=== PATIENT | female | born 1955 | race Caucasian/White ===

== ENCOUNTER 2020-11-10 07:33 | Outpatient (REF) | payer OTHER, SELFPAY | END 2020-11-10 07:34 | disposition home or self-care (01) | LOC: HO.LAB 07:33 | PROVIDERS: PCP Internal Medicine; Visit Provider Internal Medicine | DX: Z20.822 Contact with and (suspected) exposure to COVID-19 (principal) | CPT/HCPCS: C9803; U0003; U0005 ==

== ENCOUNTER 2025-02-05 13:07 | Emergency (ER) | payer MEDICARE, SELFPAY ==
--- NOTE | ~2025-02-05 | XR_ITS ---
EXAMINATION: XR KNEE, RIGHT CLINICAL INFORMATION: fall, large laceration COMPARISON: None available. TECHNIQUE: Four views of the right knee. FINDINGS: Hardware from total knee arthroplasty is evident. There is anatomic positioning without sign of loosening. Small joint effusion is present. High density fragments are visible in the soft tissues anterior to lower half of patella and projecting over proximal patellar tendon on the lateral view. On the frontal view, there are hyperdensities in the soft tissues medial to the joint line and medial femoral condyle. Soft tissue irregularity is visible anterior to superior and middle third patella on the lateral x-ray. Moderate vascular calcifications are visible in the thigh and lower leg. XR/XR knee RT 4V IMPRESSION: Soft tissue laceration with radiodense foreign bodies in the region of the mid and lower patella and proximal patellar tendon. Total knee arthroplasty. Joint effusion Electronically signed by: Isaac Batista MD 02/05/2025 01:35 PM EST
--- NOTE | ~2025-02-05 | CT_ITS ---
CLINICAL HISTORY: trauma --- Additional Notes or Special Instructions: evaluate for joint air in joint CT right knee jointwithout contrast Comparison: CR/SR - XR KNEE 4 OR MORE VIEWS RIGHT - 02/05/25 13:31 EST Findings: There is a well-seated knee joint arthroplasty. There is significant metallic artifact limiting surrounding soft tissue and joint evaluation. There are no acute fractures or dislocation. There is evidence of skin irregularity/laceration as well as several bubbles of soft tissue gas and several small radiopaque foreign bodies visualized in the subcutaneous tissues anterior to the patella, axial images 75-85, series 3. There is a trace suprapatellar joint effusion. No obvious gas within the joint space. There are no soft tissue masses or collections. IMPRESSION: Skin irregularity/laceration, associated with bubbles of soft tissue gas and several small radiopaque foreign bodies in the subcutaneous soft tissue anterior to the patella. Correlate with history of recent injury. There is trace amount of fluid in the joint. No obvious or significant amount of gas within the joint. However, this is difficult to completely exclude due to the significant metallic artifact arising from the joint arthroplasty. No acute fracture or dislocation. This document has been electronically signed by: Riki Davis MD on 02/05/2025 20:09:07
--- NOTE | 2025-02-05 13:09 | ED.GENADULT ---
HPI - General Adult General Chief complaint: Fall Stated complaint: fall, knee inj Time Seen by Provider: 02/05/25 17:59 Source: patient, RN notes reviewed and old records reviewed Mode of arrival: ambulatory Limitations: no limitations History of Present Illness ED Provider: Jama HPI narrative: A 69 year-old female with a past medical history of a right knee replacement presents to the ED after a fall in her garage where she landed on concrete and hit the front of her right knee which now has a large laceration. She denies any head strike or LOC and states that she is not on blood thinners. She says that the pain is a 9/10 but otherwise denies any numbness/tingling to the affected area or right lower extremity. The patient reports that her right knee arthroplasty was performed in [place] about 10 years ago. She reports that her last tetanus shot was within the last 3 years Related Data Previous Rx's ?Medication ?Instructions ?Recorded cephalexin 500 mg capsule 500 mg PO Q8H #15 caps 02/05/25 morphine 15 mg immediate release 15 mg PO Q8H PRN severe pain 02/05/25 tablet (scale score 7-10) #12 tabs Allergies Allergy/AdvReac Type Severity Reaction Status Date / Time No Known Allergies Allergy Verified 02/05/25 13:11 Review of Systems Constitutional: Constitutional: Denies body ache(s), Denies chills, Denies fever(s) and Denies headache(s) Eyes: Eyes: Denies blurry vision ENT: Denies vertigo and Denies headache(s) Cardiovascular: Cardiovascular: Denies chest pain Musculoskeletal: Musculoskeletal: Reports arthralgias, Reports joint swelling, Reports limited range of motion, Denies numbness and Denies tingling Integumentary/Breasts: Skin/Breast: Denies rash and Reports wounds Neurologic: Denies vertigo, Denies headache(s), Denies numbness and Denies tingling Psychiatric: Psychiatric: Denies anxiety PMFSH Social History Social History Advance Directives: No Advance Directives Information Provided: No Do you have a plan to hurt others: No Plan Physical Exam ED Vital Signs: Vital Signs - 24 hr 02/05/25 19:35 02/05/25 22:22 02/05/25 22:39 Temperature 98.1 F 97.8 F 97.8 F Pulse Rate 64 65 65 Respiratory Rate 18 18 18 Blood Pressure 143/63 H 132/55 L 132/55 L Pulse Oximetry 95 95 95 Oxygen Delivery Method Room Air Room Air Room Air BMI result Body Mass Index 32.9 Const General: healthy appearing, comfortable, no acute distress, alert and awake Nutritional Appearance: well nourished Orientation/consciousness: patient oriented x3 HENMT Head: Yes normocephalic and Yes atraumatic Eyes Eyelids: Yes eyelids normal Conjunctivae: conjunctivae normal Sclerae: sclerae normal Corneas: corneas normal Pupils: Equal, round and reactive pupils present EOM: EOMs intact bilaterally Neck Neck: Yes full ROM Resp Effort & Inspection: normal respiratory effort, able to speak in complete sentences and not labored Cardio Rate: regular rate Rhythm: regular rhythm Skin Other: Large complex laceration to the right anterior knee. Minimal bleeding. General skin exam: elasticity normal Neuro General: patient oriented x3 Cranial nerves: Yes Equal, round and reactive pupils present and Yes Bilaterally intact EOM present Cognition (Neuro): normal cognition Extrem Other: The patient has full active range of motion with flexion-extension of the right knee Right lower extremity: full ROM and knee (Anterior laceration ) Details: tenderness, swelling and laceration Course Course Course Narrative: This is a rapid medical exam performed by Jen Caceres NP: Additional HPI, ROS, PE not included below will be deferred to primary provider. Patient is a 69y/o F presenting with right knee injury/laceration. States that she tripped between her driveway and garage and fell onto her right knee. Believes tetanus is up-to-date. Large laceration to right anterior knee, bandaged in triage, bleeding controlled. Plan: X-ray Reevaluation(s) Reevaluation #1: attending note: I saw this patient with the physician land surveyor assistant and I agreed with the steps taken to address this patient's wound. My suspicion for a violation of the joint is low. Dr. Juárez. Medications Administered Discontinued Medications Generic Name Dose Route Start Last Admin Trade Name Freq PRN Reason Stop Dose Admin Cephalexin HCl 500 mg 02/05/25 21:56 02/05/25 22:24 Cephalexin 500 Mg Capsule PO 02/05/25 21:57 500 mg ONCE ONE Administration Lidocaine/Epinephrine 10 ml 02/05/25 19:04 02/05/25 20:59 Lidocaine Hcl 1%/Epi 1:100,000 10 Ml Vial INFILTRATI 02/05/25 19:05 10 ml ONCE ONE Administration Morphine Sulfate 15 mg 02/05/25 18:41 02/05/25 18:48 Morphine Sulfate Immed Release 15 Mg Tablet PO 02/05/25 18:42 15 mg ONCE ONE Administration Ondansetron HCl 4 mg 02/05/25 18:41 02/05/25 18:48 Ondansetron Odt 4 Mg Tab.Rapdis TRANSLINGU 02/05/25 18:42 4 mg ONCE ONE Administration Procedures Laceration Laceration 1: Site: lower extremity Side (If applicable): right Size (cm): 12 Description: irregular and contaminated Depth: simple, single layer Local Anesthetic: lidocaine 1% and with epi Amount of anesthesia used (mL): 10 Pre-repair: wound explored, irrigated extensively, deep structures intact and extensive debridement Skin layer closed with: nylon Size (cm): 4-0 Number of sutures: 22 Technique: simple, interrupted Medical Decision Making Medical Decision Making MDM Narrative: 69-year-old female presents for evaluation of right knee pain. She has a fairly complex laceration. Given the prosthesis I discussed with orthopedics and my attending. We opted to obtain a CT scan of the joint to evaluate for air within the joint capsule. This did not appear to show any obvious joint violation. I then cleaned the area, irrigated copiously and probed with a sterile cotton swab. I did not see any disruption into the joint. Everything seems superficial and related do a cutaneous and subcutaneous laceration. Differential Diagnosis Differential Diagnoses: The differential diagnosis associated with the presentation includes Laceration Hematoma Joint effusion Foreign body Contusion Admission/Observation Consideration of admission/observation: Escalation of care including admission/observation considered Consult Healthcare Provider Management of the patient was discussed with: [facility] (Orthopedics, Miguelito Palumbo recommends further evaluation to rule out joint involvement) Radiology Impression Discussion of test interpretation with radiology: I have reviewed the radiologist's reading. Radiologist Impression: FINDINGS: Hardware from total knee arthroplasty is evident. There is anatomic positioning without sign of loosening. Small joint effusion is present. High density fragments are visible in the soft tissues anterior to lower half of patella and projecting over proximal patellar tendon on the lateral view. On the frontal view, there are hyperdensities in the soft tissues medial to the joint line and medial femoral condyle. Soft tissue irregularity is visible anterior to superior and middle third patella on the lateral x-ray. Moderate vascular calcifications are visible in the thigh and lower leg. XR/XR knee RT 4V IMPRESSION: Soft tissue laceration with radiodense foreign bodies in the region of the mid and lower patella and proximal patellar tendon. Total knee arthroplasty. Joint effusion Electronically signed by: Isaac Batista MD 02/05/2025 01:35 PM [facility] Findings: There is a well-seated knee joint arthroplasty. There is significant metallic artifact limiting surrounding soft tissue and joint evaluation. There are no acute fractures or dislocation. There is evidence of skin irregularity/laceration as well as several bubbles of soft tissue gas and several small radiopaque foreign bodies visualized in the subcutaneous tissues anterior to the patella, axial images 75-85, series 3. There is a trace suprapatellar joint effusion. No obvious gas within the joint space. There are no soft tissue masses or collections. IMPRESSION: Skin irregularity/laceration, associated with bubbles of soft tissue gas and several small radiopaque foreign bodies in the subcutaneous soft tissue anterior to the patella. Correlate with history of recent injury. There is trace amount of fluid in the joint. No obvious or significant amount of gas within the joint. However, this is difficult to completely exclude due to the significant metallic artifact arising from the joint arthroplasty. No acute fracture or dislocation. This document has been electronically signed by: Riki Davis MD on 02/05/2025 20:09:07 Discharge Plan Discharge Clinical Impression: Laceration of knee, right, complicated Patient Disposition: Home, Self-Care Instructions: Laceration (ED) Additional Instructions: You had a complex laceration over your prosthesis. You had an x-ray, CT scan and direct visualization that did not show any obvious involvement of the joint itself. The wound was cleaned as best as possible. In his possible to her still small fragments of gravel in the wound. Therefore recommend taking antibiotics 3 times a day for the next 5 days to prevent infection. Return for new or worsening symptoms, especially if the area becomes red, more swollen or painful or if you develop any fevers I recommend that you follow up with Orthopedics at the number provided. Your sutures can be removed in 10-14 days Prescriptions: New cephalexin 500 mg capsule 500 mg PO Q8H Qty: 15 0RF morphine 15 mg tablet 15 mg PO Q8H PRN (Reason: severe pain (scale score 7-10)) Qty: 12 0RF Rx Instructions: Partial Fill upon patient request. Referrals: [facility] [place] [facility] [Provider Group] Referral Note: complex laceration over prosthesis, right knee Interventions: ED Discharge Assessment Last Done: 02/05/25 22:39 Discharge Date/Time: 02/05/25 22:43 Print Language: Chinese
[2025-02-05 13:10] VITALS: BP 181/83; PULSE 74; RESP 20; TEMP 36.3; O2SAT 100; BMI 32.9
[2025-02-05] MEDS: Morphine Sulfate Immed Release 15 MG TABLET PO (18:48)
--- OUTSIDE RECORDS SUMMARY | 2025-02-05 19:00 | XMS_ITS | Clinical Summary ---
Author Organization [facility] Address [address] [place], [place] [id number] Phone Care Team Providers Care Machine Wood Sander Name Role Phone Ricki Lopez Primary Care Provider Allergies No known active allergies Medications FLUOXETINE HCL (FLUOXETINE ORAL) Active Medication-Free Text Ibuprofen Active TURMERIC ROOT EXTRACT ORAL Active FOLIC ACID/MULTIVIT,I LUPE,HOOP RIVETING MACHINE OPERATOR HELPER (ONE DAILY FOR WOMEN ORAL) Active MELOXICAM ORAL Activ e lidocaine (LIDODERM) 5 % Place 1 patch onto the skin daily. Remove & Discard patch within 12 hours or as directed by MD 30 patch 2 Active diclofenac sodium (VOLTAREN) 1 % Gel Apply 4 g topically 4 (four) times a day for 7 days. 112 g 2 Active Active Problems Problem Noted Date Diagnosed Date Osteoarthritis of knee 04/06/2013 Overview (05/18/2014): Osteoarthritis of knee; Right Uncoded S/P Arthroplasty of knee 04/06/2013 Overview (05/18/2014): S/P Arthroplasty of knee; Left Immunizations Immunization Administration Dates Next Due COVID-19 (Pre-01/17) Pfizer Vaccine, mRNA, PF ,06/28/2020 INFLUENZA, SPLIT VIRUS, TRIVALENT W/ PRESERVATIV E IM 01/01/2016,01/21/2015 Influenza Quadrivalent MDCK Preservative Free IM 12/17/2019,02/16/2019 Influenza Quadrivalent Preservative Free IM 12/26 Pneumococcal polysaccharide PPSV23 05/16/2013 Tdap 05/16/2013 Zoster recombinant 11/05/2019,03/01/2019 Social History Tobacco Use Types Packs/Day Years Used Date Smoking Tobacco: Every Day Comments:Smoking History Pac ks/day: <=0.5 Education Answer Date Recorded Are you interested in more education? Not on olga e 07/22/2022 Are you concerned about learning? Not on file 07/22/2022 No 07/22/2022 No 07/22/2022 Digital Access Answer Date Recorded No 08/23/2022 No 08/23/2022 No 08/23/2022 Reliable internet access at home? Not on file 08/23/2022 Device with a working camera? Not on file Comments Unknown Sex and Gender Information Value Date Recorded Sex Assigned at Not on file Legal Sex Female 7:52 PM EST Gender Identity Not on file Sexual Orientation Not on file Last Filed Vital Signs Vital Sign Reading Time Taken Comments Blood Pressure 159/80 01/23/2016 11:42 AM EDT Pulse 85 01/23/2016 11:42 AM EDT Temperature - - Respiratory Rate - - Oxygen Saturation - - Inhaled Oxygen Concentration - - Weight 90.7 kg (200 lb) 01/23/2016 11:42 AM EDT Height 166.4 cm (5' 5.5 ) 01/23/2016 11:42 AM ED T Body Mass Index 32.78 01/23/2016 11:42 AM EDT Plan of Treatment Health Maintenance Due Date Last Done Comments DEPRESSION SCREENING 1969 SMOKING Hx and SMOKELESS TOBACCO SCREENING 1970 HEPATITIS C SCREENING 09/27/1975 COLOGUARD 2002 COLONOSCOPY 2002 COLORECTAL CANCER SCREENING 2002 FIT TEST 2002 FOBT 2002 SIGMOIDOSCOPY 2002 VIRTUAL COLONOSCOPY 2002 PNEUMOCOCCAL VACCINES (50+ years) (2 of 2 - PCV) 05/16/2014 05/16/2013 Adult Td,Tdap Booster 05/16/2023 05/16/2013 INFLUENZA VACCINE (#1) 2024 , 01/13/2023, 02/24/2021, Additional history exists COVID-19 VACCINE ( - 2024- season) 2024 09/30/2021, 07/19/2020, 06/28/2020 MAMMOGRAM 01/12/2026 01/13/2024, 06/14/2020 LIPID PANEL 01/03/2029 01/04/2024, 04/21/2020 RSV VACCINE (1 - 1-dose 75+ series) 2032 ZOSTER VACCINES Completed 11/05/2019, 03/01/2019 OSTEOPOROSIS SCREENING INITIAL (ONE-TIME) Completed 05/09/2024 HEPATITIS A VACCINES Aged Out No long er eligible based on patient's age to complete this topic HIB VACCINES Aged Out No longer eligi ble based on patient's age to complete this topic IPV VACCINES Aged Out No longer eligi ble based on patient's age to complete this topic MENINGOCOCCAL VACCINES (ACWY) Aged Out No longer eligible based on patient's age to complete this topic MENINGOCOCCAL VACCINES (B) Aged Out N o longer eligible based on patient's age to complete this topic Medical Devices Not on file Insurance [employer] PPO BLUE REPLACEMENT [employer] MED[employer] PPO BLUE REPLACEMENT [address] [place] [address] MEDICARE PPO BLUE REPLACEMENT [address] [place] [address] MEDICARE PPO BLUE REPLACEMENT [employer] [place] [place] MEDICARE PPO BLUE REPLACEMENT Care Teams Machine Wood Sander Relationship Specialty Start Date End Date Ricki Lopez PA [address] [place] [id number] [email or web address] PCP - General Physician Contractor General Building 06/22/24 Additional Source Comments The information contained in this document represents components of the legal health record. It is not the complete legal health record.[facility]
--- OUTSIDE RECORDS SUMMARY | 2025-02-05 19:00 | XMS_ITS | Clinical Summary ---
Author Organization [facility] Address [address] [place] [address] Care Team Providers Care Can Sealer Name Role Phone Rimma John MD Primary Care Provider Allergies No known active allergies Medications Medication Sig Dispensed Refills Start Date End Date Status budesonide (ENTOCORT EC) 3 MG 24 hr capsule Take 2 capsules (6 mg total) by mouth daily. 0 Active FLUoxetine (PROzac) 40 MG capsule Take 1 capsule (40 mg total) by mouth daily. 0 Active omeprazole (PriLOSEC) 20 MG capsule Take 1 capsule (20 mg total) by mouth daily. 0 Active hydroCHLOROthiazide (MICROZIDE) 12.5 MG capsule Take 1 capsule (12.5 mg total) by mouth daily. 0 Active Diclofenac Sodium (DICLO GEL EX) Apply topically. 0 Acti ve acetaminophen (TYLENOL EXTRA STRENGTH) 500 MG tablet Take 1 tablet (500 mg total) by mouth every 6 (six) hours as needed. 0 Active [place]-3 Fatty Acids (Fish Oil) 1000 MG CAPS Take by mouth. 0 Active Multiple Vitamin (MULTIVITAMIN ADULT PO) Take by mouth. 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 Family History Medical History Relation Name Comments Cancer Mother Relation Name Status Comments Mother Social History Tobacco Use Types Packs/Day Years Used Date Smoking Tobacco: Former Cigarettes 1 35 Smokeless Tobacco: Never Alcohol Use Standard Drinks/Week Comments Not Currently 0 (1 standard drink = 0.6 oz pur e alcohol) NO ALCOHOL 9 YRS Sex and Gender Information Value Date Recorded Sex Assigned at Not on file Gender Identity Not on file Sexual Orientation Not on file Job Start Date Occupation Industry Not on file Not on file Not on file Last Filed Vital Signs Vital Sign Reading Time Taken Comments Blood Pressure 164/76 07/06/2022 11:00 AM EDT Pulse 73 07/06/2022 11:00 AM EDT Temperature 37.1 C (98.8 F) 07/06/2022 11:00 AM EDT Respiratory Rate - - Oxygen Saturation 100% 07/06/2022 11:00 AM EDT Inhaled Oxygen Concentration - - Weight 94.6 kg (208 lb 9.6 oz) 07/06/2022 11:00 AM EDT Height 165.1 cm (5' 5 ) 07/06/2022 11:00 AM EDT Body Mass Index 34.71 07/06/2022 11:00 AM EDT Plan of Treatment Health Maintenance Due Date Last Done Comments Hepatitis C Screening 1957 Depression Screening 1969 Preventative Health Evaluation 09/27/1975 Colon Cancer Screening (Colonoscopy) 2002 Breast Cancer Screening (Mammogram) 09/27/2007 Fall Risk Assessment 2022 Osteoporosis Screening (DEXA Scan) 2022 Pneumococcal Vaccine (2 of 2 - PCV) 2022 05/16/2013 DTap / Tdap / Td (2 - Td or Tdap) 05/16/2023 05/16/2013 COVID-19 Vaccine (3 - season) 2024 07/19/2020, 06/28/2020 Influenza Vaccine (#1) 2024 , 12/17/2019, 02/16/2019, Additional history exists RSV Adult > 60+ Yrs or (1 - 1-dose 75+ series) 2032 Shingrix-Zoster Vaccine Completed 11/05/2019, 03/01 Hepatitis B Vaccines Aged Out No long er eligible based on patient's age to complete this topic RSV Ped < 20 months Aged Out No longe r eligible based on patient's age to complete this topic Insurance Payer Benefit Plan / Group Subscriber ID Effective Dates Phone Address [facility] [id number] 2016-Present [address] [facility] [address] [place] [address] HMO Care Teams Can Sealer Relationship Specialty Start Date End Date Rimma John MD [address] [place] [address] PCP - General Internal Medicine 03/01/22
--- OUTSIDE RECORDS SUMMARY | 2025-02-05 19:00 | XMS_ITS | Clinical Summary ---
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 Active acetaminophen (TYLENOL) 500 mg tablet Take 500 mg by mouth every 6 hours as needed. Active MULTIVITAMIN ORAL 1tab daily Active omega-3 acid ethyl esters (LOVAZA) 1 gram capsule Take 1 Capsule by mouth daily. Active omeprazole (PriLOSEC) [address] capsule TAKE ONE CAPSULE BY MOUTH EVERY MORNING (BEFORE BREAKFAST). 30 capsule 6 5 Active ferrous sulfate 325 mg (65 mg elemental iron) tablet TAKE ONE TABLET BY MOUTH EVERY DAY 90 tablet 1 5 Active omega-3 fatty acids-fish oil 300-500 mg capsule Take by mouth. Activ e ascorbic acid/collagen hydr (COLLAGEN SKIN RENEWAL ORAL) Take by mouth. Activ e cholecalciferol (Vitamin D3) 25 mcg (1,000 unit) tablet Take 1 tablet (1,000 Units total) by mouth 1 (one) time each day. Active hydroCHLOROthia zide 12.5 mg tablet Take 1 tablet (12.5 mg total) by mouth 1 (one) time each day. 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 Nonrheumatic aortic valve stenosis 06/29/2021 Overview (03/29/2024): Repeat echo in 2 to 3 years. Renal artery stenosis (CMS/HCC V24) 06/25/2021 Ascending aorta dilatation (CMS/HCC V24) 022 Overview (03/29/2024): 4 cm. Seen with cardiology. Repeat echo in 2 to 3 years. LVH (left ventricular hypertrophy) 04/15/2021 Overview (03/29/2024): moderate Mild mitral regurgitation 11/01/2020 Hyperlipidemia 01/28/2020 Overview (03/29/2024): ASCVD score 5.7% Collagenous colitis 01/01/2020 Overview (03/29/2024): 01/01/2020: Colonoscopy and biopsies. HTN (hypertension), benign 11/16/2019 Overview (03/29/2024): Inconclusive RA duplex. Cardiology consult pending. Chronic low back pain without sciatica 9 Chronic pain of right knee 02/16/2019 Elevated blood pressure reading 02/16/2019 Status post total right knee replacement 019 Varicose veins with pain 08/28/2018 Gallstones 01/21/2015 Splenic cyst 01/21/2015 Overview (03/29/2024): Follow up with ultrasound in 12/2015 or symptomatic Cirrhosis ([facility]/HCC V24, [facility]/HCC V28) 09/18/2009 ETOH abuse 09/16/2009 Overview (03/29/2024): Quit etoh in 2007. Then restarted and last quit in 2012. 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 Mahan in [facility] Encounters Date Type Department Care Team Description 02/04/2025 Telephone Gynecologic Oncology - [address] [phone] [place], [place] 01/29/2025 Telephone Gynecologic Oncology - [address] [phone] [place], [place] 01/15/2025 6:55 AM EDT - 01/15/2025 11:59 PM EDT Hospital Encounter [facility] CT Scan [address] [place] [phone] Bilateral leg edema Discharge Disposition: Home or Self Care 12/07/2024 10:45 AM EDT Office Visit [facility] Hematology Oncology [address] [place] [phone] Asha Back MD Spontaneous ecchymoses (Primary Dx); Iron deficiency anemia due to sideropenic dysphagia; Bilateral leg edema; Alcoholic cirrhosis of liver without ascites (CMS/HCC V24, CMS/HCC V28) from Last 3 Months Immunizations Immunization Administration Dates Next Due Influenza Quadravalent, MDCK , 0.5ml, preservative free (Flucelvax) 6mo and older 02/24/2021,12/17/2019,02/16/2019 Influenza trivalent, 0.5mL ( Fluad) 65yo and older 01/04/2024,01/13/2023 Influenza trivalent, 0.5mL, preservative free (Fluarix; FluLaval; Fluzone) ages 6mo and older (Afluria) 3 years and older 01/07/2018,01/01/2016,01/21/2015 Influenza, Unspecified 01/07/2018 Pfizer SARS-CoV-2 COVID-19, mRNA, LNP-S, preservative free 07/19/2020,06/28/2020 Pneumococcal polysaccharide 23 valent (Pneumovax 23) 2yo and older 05/16/2013 Tdap Tetanus diptheria acell ular pertussis (Boostrix; Adacel) 7yo and older 05/16/2013 Zoster recombinant (Shingrix ) 19yo and older 11/05/2019,03/01/2019 Surgical History Surgery Date Site/Laterality Comments TOTAL KNEE ARTHROPLASTY Left PROCEDURE:REPLACEMENT TOTAL KNEE TOTAL KNEE ARTHROPLASTY 2008 Left PROCEDURE: HISTORICAL TOTAL KNEE REPLACE; COMMENT: left COLONOSCOPY 07/31/2018 PROCEDURE: HISTORICAL COLONOSCOPY; COMMENT: negative average risk screening exam. TOTAL KNEE ARTHROPLASTY 2018 Right PROCEDURE: HISTORICAL TOTAL KNEE REPLACE; COMMENT: right UPPER GASTROINTESTINAL ENDOSCOPY 12/27/2019 PROCEDURE: LA UPPER GI ENDOSCOPY PERFORMED; COMMENT: Small gastric ulcers, duodenal erosions, biopsies obtained: No evidence of celiac disease, no evidence of Helicobacter pylori infection. COLONOSCOPY 12/27/2019 PROCEDURE: HISTORICAL COLONOSCOPY; COMMENT: Visually normal, random biopsies obtained to assess chronic diarrhea: Biopsies = collagenous colitis. BREAST SURGERY Bilateral PROCEDURE: LA UNLISTED PROCEDURE BREAST; COMMENT: inverted nipple correction OTHER SURGICAL HISTORY 07/03/2021 PROCEDURE: OUTSIDE ENDOSCOPY; COMMENT: Dr. Fan [facility] Medical History Medical History Date Comments Hypertension DX:Hypertension Anxiety state, unspecified 02/10/2006 DX:An xiety state, unspecified ETOH abuse DX:ETOH abuse; C OMMENT: and narcotic abuse in past Hepatomegaly DX:Hepatomegaly Vitamin D deficiency DX:Vitamin D deficiency Collagenous colitis 01/01/2020 DX:Collageno us colitis; COMMENT: 01/01/2020: Colonoscopy and biopsies. Family History Medical History Relation Name Comments No Known Problems Father alive at 9 7 Cancer Mother Lung cancer Mother maybe mets or p rimary, unk, at 84 Lung cancer Paternal Grandfather No Known Problems Sister 1 No Known Problems Sister 2 Breast cancer Neg Hx Colon cancer Neg Hx Ovarian cancer Neg Hx Pancreatic cancer Neg Hx Prostate cancer Neg Hx Uterine cancer Neg Hx Relation Name Status Comments Father Alive A+W Maternal Grandfather Maternal Grandmother Mother Paternal Grandfather Paternal Grandmother Sister 1 Alive Sister 2 Alive Social History Tobacco Use Types Packs/Day Years Used Date Smoking Tobacco: Former Cigarettes 0.5 40.8 0 03/28/1977 - 01/25/2018 Passive Smoke Exposure: Never Smokeless Tobacco: Never Tobacco Cessation:Counseling Given: Not Answered Alcohol Use Standard Drinks/Week Comments No 0 (1 standard drink = 0.6 oz pur e alcohol) Quit 12 years Comments No Sex and Gender Information Value Date Recorded Sex Assigned at Female 06/13/2024 3:16 PM EDT Legal Sex Female 4:26 AM EST Gender Identity Female 06/13/2024 3:16 PM EDT Sexual Orientation Not on file Obstetrics History Last Filed Vital Signs Vital Sign Reading Time Taken Comments Blood Pressure 149/61 12/07/2024 10:49 AM EDT Pulse 73 12/07/2024 10:49 AM EDT Temperature 37 C (98.6 F) 12/07/2024 10:49 AM EDT Respiratory Rate 14 10/02/2024 7:56 AM EDT Oxygen Saturation 100% 12/07/2024 10:49 AM EDT Inhaled Oxygen Concentration - - Weight 88.5 kg (195 lb) 12/07/2024 10:49 AM EDT Height 165.1 cm (5' 5 ) 12/07/2024 10:49 AM EDT Body Mass Index 32.45 12/07/2024 10:49 AM EDT Plan of Treatment Upcoming Encounters Date Type Department Care Team (Late st Contact Info) Description 02/06/2025 8:40 AM EST Appointment Radiology Department [address] [phone] 06/07/2025 9:45 AM EDT Office Visit [facility] Hematology Oncology [address] [place] [phone] Asha Ramos MD [address] [place] [phone] Health Maintenance Due Date Last Done Comments Hepatitis A Vaccines (1 of 2 - Risk 2-dose series) 1974 Medicare Annual Wellness Visit 03/06/2022 Social Influencers of Health Screening 03/06/2022 Falls Risk Assessment 2022 DTaP,Tdap,and Td Vaccines (2 - Td or Tdap) 05/16/2023 05/16/2013 Depression Screening 03/28/2024 COVID-19 Vaccine ( season) 2024 08/26/2024, 09/30/2021, 07/19/2020, Additional history exists Influenza Vaccine (#1) 2024 , 01/13/2023, 02/24/2021, Additional history exists Lung Cancer Screening (Low Dose CT) 06/15/2025 06/15/2024, 06/16/2023, 05/19/2022 Hypertension/CHF/CAD Annual BMP Blood Test 08/29/2025 08/29/2024, 08/13/2024, 08/01/2024, Additional history exists Breast Cancer Screening 01/12/2026 01/13/20 24, 01/13/2024, 06/19/2021, Additional history exists Cholesterol Screening (Lipid Panel) 01/03/2029 01/04/2024, 01/04/2024 Colorectal Cancer Screening: Colonoscopy 12/26/2029 12/27/2019 RSV Immunization Adult Patients (1 - 1-dose 75+ series) 2032 Osteoporosis Screening (Bone Density Screening) 05/09/2034 05/09/2024 Hepatitis C Screening Completed 09/16/2009 Zoster Vaccines Completed 11/05/2019, 03/01/2019 Pneumococcal Vaccine: 50+ Years Completed 08/26/2024, 05/16/2013 HIB Vaccines Aged Out No longer eligi ble based on patient's age to complete this topic HPV Vaccines Aged Out No longer eligi ble based on patient's age to complete this topic Hepatitis B Vaccines Aged Out No long er eligible based on patient's age to complete this topic IPV Vaccines Aged Out No longer eligi ble based on patient's age to complete this topic MMR Vaccines Aged Out No longer eligi ble based on patient's age to complete this topic Meningococcal ACWY Vaccine Aged Out N o longer eligible based on patient's age to complete this topic Meningococcal B Vaccine Aged Out No l onger eligible based on patient's age to complete this topic RSV Immunization Patients Under 20 months Aged Out No longer eligible based on patient's age to complete this topic Varicella Vaccines Aged Out No longer eligible based on patient's age to complete this topic Procedures Procedure Name Priority Date/Time Associated Diagnosis Comments CT ABDOMEN PELVIS W CONTRAST Routine 01/15/2025 7:54 AM EDT Bilateral leg edema BASIC METABOLIC PANEL Routine 08/29/2024 10:[address] LUNG SCREENING Routine 06/15/2024 7:5 3 AM EDT Personal history of nicotine dependence Encounter for screening for malignant neoplasm of respiratory organs BD BONE DENSITY DXA AXIAL SKELETON Routine 05/09/2024 9:35 AM EST Encounter for screening for osteoporosis SCREENING MAMMOGRAPHY BI 2-VIEW BREAST INC CAD Routine 01/13/2024 11:19 AM EDT Encounter for screening mammogram for malignant neoplasm of breast LIPID PANEL Routine 01/04/2024 COLONOSCOPY Routine 12/27/2019 HEPATITIS C SCREENING Routine 09/16/2009 from Last 3 Months or Most Recently Relevant to Health Maintenance Results * CT Abdomen Pelvis w Contrast (01/15/2025 7:54 AM EDT) Anatomical Region Laterality Modality Body Computed Tomogra phy 01/22/2025 2:44 PM EDT Impressions 01/22/2025 2:54 PM EDT Impression: 1. Cirrhotic liver. 2. 4 x 3 x 5 cm left adnexal mass, presumably ovarian in origin. Pelvic ultrasound recommended for further characterization. [place] ([id number]) -------- FINAL REPORT -------- Dictated By: Essie Villa Dictated Date: 01/22/2025 14:44 ET Assigned Physician: Essie Villa Reviewed and Electronically Signed By: Essie Villa Signed Date: 01/22/2025 14:54 ET Workstation ID: [id number] Transcribed By: Self Edit Transcribed Date: 01/22/2025 14:44 ET Narrative 01/22/2025 2:54 PM EDT History: Bilateral lower extremity swelling. Question abdominal lymphadenopathy or mass. Comparison: Lung screening CT 06/15/24 Technique: Helical volumetric imaging of the abdomen and pelvis was performed following oral contrast and during the uneventful intravenous administration of 90 cc Isovue-370. DLP: 1125.71 mGy/cm Nurego VCT Iterative reconstruction technique Findings: Mild multichamber cardiomegaly with extensive coronary artery calcification is partially imaged. A cirrhotic hepatic configuration is again demonstrated, with extensive surface nodularity and enlargement of the caudate lobe. A 3 mm circumscribed hypoattenuating lesion in the lateral segment of the left lobe is unchanged, most likely a cyst. The portal vein is patent. The gallbladder is physiologically distended and contains at least a single small calculus. No evidence of biliary obstruction is seen. Spleen is normal in size. There are two small hypoattenuating lesions in the lower pole, measuring 5 mm and 4 mm, respectively, possibly cysts. The pancreas and adrenal glands are unremarkable. The kidneys are normal in position and size, with symmetric, intact nephrograms and no evidence of hydronephrosis or mass. A 4 mm nonobstructing calculus is seen in the upper pole of the right kidney. The abdominal aorta is atherosclerotic. No aneurysm is identified. There are tortuous vascular structures in the right perirenal and left para-aortic areas, consistent with portosystemic collaterals in this setting. No ascites is identified. No lymphadenopathy is seen. The uterus is small, consistent with age. A 4.4 x 3.2 x 4.8 cm circumscribed round left adnexal mass is identified, presumably ovarian in origin. The urinary bladder is unremarkable. No evidence of bowel obstruction is seen. Enteric contrast given for the study has reached the proximal colon. The appendix is normal in caliber in the right lower quadrant. No abnormal bowel wall thickening or perienteric or pericolonic fat stranding is demonstrated. Lumbar disc degenerative changes and facet arthritis are noted. A mild compression fractures/Schmorl's node deformity is noted in the superior endplate of L4. No retropulsion is seen. Procedure Note Essie Villa MD - 01/22/2025 History: Bilateral lower extremity swelling. Question abdominallymphadenopathy or mass. Comparison: Lung screening CT 06/15/24 Technique: Helical volumetric imaging of the abdomen and pelvis wasperformed following oral contrast and during the uneventful intravenousadministration of 90 cc Isovue-370. DLP: 1125.71 mGy/cm Nurego VCT Iterative reconstruction technique Findings: Mild multichamber cardiomegaly with extensive coronary arterycalcification is partially imaged. A cirrhotic hepatic configuration is again demonstrated, with extensivesurface nodularity and enlargement of the caudate lobe. A 3 mmcircumscribed hypoattenuating lesion in the lateral segment of the leftlobe is unchanged, most likely a cyst. The portal vein is patent. Thegallbladder is physiologically distended and contains at least a singlesmall calculus. No evidence of biliary obstruction is seen. Spleen is normal in size. There are two small hypoattenuating lesions inthe lower pole, measuring 5 mm and 4 mm, respectively, possibly cysts. Thepancreas and adrenal glands are unremarkable. The kidneys are normal in position and size, with symmetric, intactnephrograms and no evidence of hydronephrosis or mass. A 4 mmnonobstructing calculus is seen in the upper pole of the right kidney. The abdominal aorta is atherosclerotic. No aneurysm is identified. Thereare tortuous vascular structures in the right perirenal and leftpara-aortic areas, consistent with portosystemic collaterals in thissetting. No ascites is identified. No lymphadenopathy is seen. The uterus is small, consistent with age. A 4.4 x 3.2 x 4.8 cmcircumscribed round left adnexal mass is identified, presumably ovarian inorigin. The urinary bladder is unremarkable. No evidence of bowel obstruction is seen. Enteric contrast given for thestudy has reached the proximal colon. The appendix is normal in caliber inthe right lower quadrant. No abnormal bowel wall thickening or perientericor pericolonic fat stranding is demonstrated. Lumbar disc degenerative changes and facet arthritis are noted. A mildcompression fractures/Schmorl's node deformity is noted in the superiorendplate of L4. No retropulsion is seen. IMPRESSION: Impression: 1. Cirrhotic liver. 2. 4 x 3 x 5 cm left adnexal mass, presumably ovarian in origin. Pelvicultrasound recommended for further characterization. Telerad [place] ([id number]) -------- FINAL REPORT -------- Dictated By: Essie Villa Dictated Date: 01/22/2025 14:44 ET Assigned Physician: Essie Villa Reviewed and Electronically Signed By: Essie Villa Signed Date: 01/22/2025 14:54 ET Workstation ID: [id number] Transcribed By: Self Edit Transcribed Date: 01/22/2025 14:44 ET Subramcharles Ramos MD IMG CT PROCEDURES F inal Result * Basic metabolic panel (08/29/2024 10:30 AM EDT) Sodium 141 133 - 145 mmol/L LAB CHEMISTRY METHOD 08/29/2024 3:34 PM [facility] Potassium 3.7 3.5 - 5.5 mmol/L LAB CHEMISTRY METHOD 08/29/2024 3:34 PM [facility] Chloride 108 96 - 110 mmol/L LAB CHEMISTRY METHOD 08/29/2024 3:34 PM [facility] CO2 28 21 - 32 mmol/L LAB CHEMISTRY METHOD 08/29/2024 3:34 PM [facility] Anion Gap 5 3 - 11 LAB CHEMISTRY METHOD 08/29/2024 3:34 PM [facility] Glucose 96 70 - 100 mg/dL LAB CHEMISTRY METHOD 08/29/2024 3:34 PM [facility] BUN 17 5 - 25 mg/dL LAB CHEMISTRY METHOD 08/29/2024 3:34 PM EDT [facility] Creatinine 0.68 0.50 - 1.10 mg/dL LAB CHEMISTRY METHOD 08/29/2024 3:34 PM EDT [facility] eGFR 96 >=60 mL/min/1. 73m2 LAB CHEMISTRY METHOD 08/29/2024 3:34 PM EDT [facility] Comment:Calculation based on the Chronic Kidney Disease Epidemiology Collaboration (CKD-EPI) equation refit without adjustment for race. BUN/Creatinine Ratio 25.0 LAB CHEMISTRY METHOD 08/29/2024 3:34 PM EDT [facility] Calcium 9.3 8.5 - 10.5 mg/dL LAB CHEMISTRY METHOD 08/29/2024 3:34 PM EDT [facility] Blood Venous blood specimen / Unknown Venipuncture / Unknown 08/29/2024 10:30 AM EDT 08/29/2024 10:30 AM EDT us Rimma John MD LAB BLOOD ORDERABLES Final Resul t [facility] [address] [place] [address], * CT Lung Screening (06/15/2024 7:53 AM EDT) Anatomical Region Laterality Modality Chest Computed Tomogra phy 06/15/2024 8:44 AM EDT Impressions 06/15/2024 9:05 AM EDT 1. LUNG-RADS category 2: Benign findings without evidence of primary lung cancer. 2. Faint groundglass opacity within the right upper lobe likely represents a small area of inflammation/infection. Attention can be given on follow-up examination 3. Other incidental findings as above. RECOMMENDATION: Continued routine annual LDCT lung screening. Suggest next exam on or around 06/15/2025. -------- FINAL REPORT -------- Dictated By: Rob Norris Dictated Date: 06/15/2024 08:44 ET Assigned Physician: Rob Norris Reviewed and Electronically Signed By: Rob Norris Signed Date: 06/15/2024 09:05 ET Workstation ID: [id number] Transcribed By: Self Edit Transcribed Date: 06/15/2024 08:44 ET Narrative 06/15/2024 9:[address] CHEST WITHOUT CONTRAST FOR LUNG CANCER SCREENING INDICATION: Lung cancer screening more than 20 pack-year, smoking history in last 15 years TECHNIQUE: Helical, low dose CT (LDCT) of the chest was performed without intravenous contrast. Additional maximal intensity projection images obtained. Radiation dosage is 4.89mGy COMPARISON: CT chest from 07/25/2023 FINDINGS: Lung Screening Specific: 0.2 cm subpleural pulmonary nodule within the right upper lobe (series 3, image 75). Solid 0.6 x 0.6 cm left lower lobe medial nodule associated with small calcification (series 3, image 178). This could be nodule versus a focal area of scarring, grossly stable from prior. Faint groundglass attenuation within the right upper lobe (series 3, image 83) new from prior. Lung parenchyma: No focal consolidation, effusion. Mediastinum: Mild atherosclerosis of the thoracic aorta. Upper abdomen: The liver is lobular and heterogeneous. Pancreas and spleen are within normal limits. Small hiatal hernia. Right upper pole nonobstructing renal calculus. MSK: Moderate degenerative changes of the thoracic spine. Chronic fracture of the sternum. Procedure Note Rob Norris MD - 06/15/2024 CT CHEST WITHOUT CONTRAST FOR LUNG CANCER SCREENING INDICATION: Lung cancer screening more than 20 pack-year, smoking historyin last 15 years TECHNIQUE: Helical, low dose CT (LDCT) of the chest was performed withoutintravenous contrast. Additional maximal intensity projection imagesobtained. Radiation dosage is 4.89mGy COMPARISON: CT chest from 07/25/2023 FINDINGS: Lung Screening Specific: 0.2 cm subpleural pulmonary nodule within theright upper lobe (series 3, image 75). Solid 0.6 x 0.6 cm left lower lobemedial nodule associated with small calcification (series 3, image 178).This could be nodule versus a focal area of scarring, grossly stable fromprior. Faint groundglass attenuation within the right upper lobe (series3, image 83) new from prior. Lung parenchyma: No focal consolidation, effusion. Mediastinum: Mild atherosclerosis of the thoracic aorta. Upper abdomen: The liver is lobular and heterogeneous. Pancreas andspleen are within normal limits. Small hiatal hernia. Right upper polenonobstructing renal calculus. MSK: Moderate degenerative changes of the thoracic spine. Chronicfracture of the sternum. IMPRESSION: 1. LUNG-RADS category 2: Benign findings without evidence of primary lungcancer. 2. Faint groundglass opacity within the right upper lobe likely representsa small area of inflammation/infection. Attention can be given onfollow-up examination 3. Other incidental findings as above. RECOMMENDATION: Continued routine annual LDCT lung screening. Suggest nextexam on or around 06/15/2025. -------- FINAL REPORT -------- Dictated By: Rob Norris Dictated Date: 06/15/2024 08:44 ET Assigned Physician: Rob Norris Reviewed and Electronically Signed By: Rob Norris Signed Date: 06/15/2024 09:05 ET Workstation ID: [id number] Transcribed By: Self Edit Transcribed Date: 06/15/2024 08:44 ET us Jessica Lu MD IM CT PROCEDURES Final Result * BD Bone Density DXA Axial Skeleton (05/09/2024 9:35 AM EST) Anatomical Region Laterality Modality Wrist, Hip, L-spine Bone Densito metry 05/09/2024 12:2 5 PM EST Impressions 05/09/2024 12:27 PM EST Impression: Osteoporosis by WHO criteria. The [facility] Department of Internal Medicine recommends using National Osteoporosis Foundation (NOF) guidelines in treatment decisions related to osteoporosis. NOF guidelines suggest considering treatment for postmenopausal women and men aged 50 or older presenting with the following: History of hip or vertebral fracture. T-score = -2.5 (DXA) at the femoral neck, total hip, or spine, after appropriate evaluation to exclude secondary causes. Low bone mass (T-score between -1.0 and -2.5 at the femoral neck or spine) AND a 10-year probability of a hip fracture = 3% OR a 10-year probability of a major osteoporosis-related fracture = 20% based on the [place]-adapted WHO algorithm Please note that all treatment decisions require clinical judgment and consideration of individual patient factors, including patient preferences, co-morbidities, previous drug use, risk factors not captured in the FRAX model (e.g., frailty, falls, vitamin D deficiency, increased bone turnover, interval significant decline in bone density) and possible under- or over-estimation of fracture risk by FRAX. Optional alternative screening schedule based on rani Lewis., [facility] April 15, 2011 for patients with osteopenia (based on hip BMD T-score) is as follows: * advanced osteopenia (T scores -2.00 to -2.49), BMD testing every year * moderate osteopenia (T scores -1.50 to -1.99), BMD testing every 5 years mild osteopenia or normal BMD (T scores -1.50 and higher), BMD testing every 15 years -------- FINAL REPORT -------- Dictated By: Tisha Cruz Dictated Date: 05/09/2024 12:25 ET Assigned Physician: Tisha Cruz Reviewed and Electronically Signed By: Tisha Cruz Signed Date: 05/09/2024 12:27 ET Workstation ID: [id number] Transcribed By: Self Edit Transcribed Date: 05/09/2024 12:25 ET Narrative 05/09/2024 12:27 PM EST BONE DENSITY (DEXA) Lumbar Spine T-score is -0.8. (SD relative to 20-29 y/o adult) Z-score is one. (SD relative to age matched peers) This is considered normal by WHO criteria. Left Hip T-score is -3.1. Z-score is -1.5. This is considered osteoporosis by WHO criteria. Comparison exam(s): Not available. Confidence level is +/-95%. Procedure Note Tisha Cruz MD - 05/09/2024 BONE DENSITY (DEXA) Lumbar Spine T-score is -0.8. (SD relative to 20-29 y/o adult) Z-score is one. (SD relative to age matched peers) This is considered normal by WHO criteria. Left Hip T-score is -3.1. Z-score is -1.5. This is considered osteoporosis by WHO criteria. Comparison exam(s): Not available. Confidence level is +/-95%. IMPRESSION: Impression: Osteoporosis by WHO criteria. The [facility] Department of Internal Medicine recommendsusing National Osteoporosis Foundation (NOF) guidelines in treatmentdecisions related to osteoporosis. NOF guidelines suggest consideringtreatment for postmenopausal women and men aged 50 or older presentingwith the following: History of hip or vertebral fracture. T-score = -2.5 (DXA) at the femoral neck, total hip, or spine, afterappropriate evaluation to exclude secondary causes. Low bone mass (T-score between -1.0 and -2.5 at the femoral neck or spine)AND a 10-year probability of a hip fracture = 3% OR a 10-year probabilityof a major osteoporosis-related fracture = 20% based on the [place]-adapted WHOalgorithm Please note that all treatment decisions require clinical judgment andconsideration of individual patient factors, including patientpreferences, co-morbidities, previous drug use, risk factors not capturedin the FRAX model (e.g., frailty, falls, vitamin D deficiency, increasedbone turnover, interval significant decline in bone density) and possibleunder- or over-estimation of fracture risk by FRAX. Optional alternative screening schedule based on rani Lewis., [facility] for patients with osteopenia (based on hip BMD T-score)is as follows: * advanced osteopenia (T scores -2.00 to -2.49), BMD testing every year * moderate osteopenia (T scores -1.50 to -1.99), BMD testing every 5years mild osteopenia or normal BMD (T scores -1.50 and higher), BMD testingevery 15 years -------- FINAL REPORT -------- Dictated By: Tisha Cruz Dictated Date: 05/09/2024 12:25 ET Assigned Physician: Tisha Cruz Reviewed and Electronically Signed By: Tisha Cruz Signed Date: 05/09/2024 12:27 ET Workstation ID: [id number] Transcribed By: Self Edit Transcribed Date: 05/09/2024 12:25 ET us Rimma John MD IMG DXA PROCEDURES Final Result * SCREENING MAMMOGRAPHY BI 2-VIEW BREAST INC CAD (01/13/2024 11:19 AM EDT) Anatomical Region Laterality Modality Radiographic Tegan ging 09/01/2023 9:24 AM EDT Narrative 01/13/2024 12:39 PM EDT This is a summary report. The complete report is available in the patient's medical record. If you cannot access the medical record, please contact the sending organization for a detailed fax or copy. Full field digital screening tomosynthesis mammography, reviewed with CAD and compared to previous. The breasts are composed of fatty and fibroglandular tissue. No suspicious mass, architectural distortion or suspicious calcifications are identified. IMPRESSION: : No mammographic evidence of malignancy. BIRADS 1-Negative; N. Breast density: The breasts have scattered areas of fibroglandular density. 5 year breast cancer risk assessment 1.4 % Lifetime breast cancer risk assessment 4.9 % Breast cancer risk category Low (<15%) Location: [facility], [address] [place] [address], [phone], [phone] Procedure Note Amadeo Bonilla MD - 01/24/2024 This is a summary report. The complete report is available in thepatient's medical record. If you cannot access the medical record, pleasecontact the sending organization for a detailed fax or copy. Full field digital screening tomosynthesis mammography, reviewed with CADand compared to previous. The breasts are composed of fatty andfibroglandular tissue. No suspicious mass, architectural distortion orsuspicious calcifications are identified. IMPRESSION: : No mammographic evidence of malignancy. BIRADS 1-Negative; N. Breast density: The breasts have scattered areas of fibroglandulardensity. 5 year breast cancer risk assessment 1.4 % Lifetime breast cancer risk assessment 4.9 % Breast cancer risk category Low (<15%) Location: [facility], [address] [place] [address] [place], [address], [phone] Rimma John MD IMG XR PROCEDURES Final Result * (ABNORMAL) Lipid panel (01/04/2024) [facility] LDL/HDL Ratio 3 0 - 4 Triglycerides 94 0 - 150 mg/dL Cholesterol 194 0 - 200 mg/dL HDL 74 >=40 mg/dL LDL Cholesterol 102(A) 0 - 100 mg/dL Blood Venous blood specimen / Unknown Result [facility] Historical Provider LAB BLOOD ORDERABLES Sujey l Result * Colonoscopy (12/27/2019) [facility] Colonoscopy Abstracted, no interpretation Anatomical Region Laterality Modality Other Result [facility] Historical Provider HEALTH MAINTENANCE Final Result * Hepatitis C Screening (09/16/2009) [facility] Hepatitis C Screening Abstracted Historical Provider HEALTH MAINTENANCE Final Result from Last 3 Months or Most Recently Relevant to Health Maintenance Insurance [employer] ([facility]) MEDICARE ADVANTAGE Care Teams Senior Mechanical Designer Relationship Specialty Start Date End Date Rimma John MD [address] [place] [phone] PCP - General Internal Medicine 01/13/24
--- OUTSIDE RECORDS SUMMARY | 2025-02-05 19:00 | XMS_ITS | Encounter Summary ---
[facility] [place] [address] Care Team Providers Care Health Services Rn Name Role Phone Rimma John MD Primary Care Provider [phone] Reason for Visit * Reason Onset Date Comments New patient appointment 02/04/2025 Encounter Details Date Type Department Care Team (Late st Contact Info) Description 02/04/2025 Telephone Gynecologic Oncology - [address] [phone] Rachel Rodriguez MA Social History Tobacco Use Types Packs/Day Years Used Date Smoking Tobacco: Former Cigarettes 0.5 40.8 0 03/28/1977 - 01/25/2018 Passive Smoke Exposure: Never Smokeless Tobacco: Never Alcohol Use Standard Drinks/Week Comments No 0 (1 standard drink = 0.6 oz pur e alcohol) Quit 12 years Comments No Sex and Gender Information Value Date Recorded Sex Assigned at Female 06/13/2024 3:16 PM EDT Legal Sex Female 4:26 AM EST Gender Identity Female 06/13/2024 3:16 PM EDT Sexual Orientation Not on file documented as of this encounter Progress Notes * Rachel Rodriguez MA - 02/04/2025 1:44 PM EST LVM to call the office so we can schedule her new patient appointment with one of our providers. documented in this encounter Plan of Treatment Upcoming Encounters Date Type Department Care Team (Late st Contact Info) Description 02/06/2025 8:40 AM EST Appointment Radiology Department - [place] [address] [place] [phone] 06/07/2025 9:45 AM EDT Office Visit [facility] Hematology Oncology [address] [place] [phone] Asha Ramos MD [address] [place] [phone] documented as of this encounter Visit Diagnoses Not on filedocumented in this encounter Care Teams Health Services Rn Relationship Specialty Start Date End Date Rimma John MD [address] [place] [phone] PCP - General Internal Medicine 01/13/24 documented as of this encounter
[2025-02-05 19:35] VITALS: BP 143/63; PULSE 64; RESP 18; TEMP 36.7; O2SAT 95
[2025-02-05] MEDS: Lidocaine HCl 1%/Epi 1:100,000 10 ML VIAL INFILTRATI (20:59)
--- NOTE | 2025-02-05 21:01 | PC.NURSE ---
Provider at bedside to suture patient's right knee.
[2025-02-05 22:22] VITALS: BP 132/55; PULSE 65; RESP 18; TEMP 36.6; O2SAT 95
[2025-02-05 22:39] VITALS: BP 132/55; PULSE 65; RESP 18; TEMP 36.6; O2SAT 95
== END 2025-02-05 22:43 | disposition home or self-care (01) ==
PROVIDERS: Emergency Provider Emergency Medicine
DX: S81.011A Laceration without foreign body, right knee, initial encounter (principal); W18.30XA Fall on same level, unspecified, initial encounter; Y93.9 Activity, unspecified; Y92.008 Other place in unspecified non-institutional (private) residence as the place of occurrence of the external cause; Z96.651 Presence of right artificial knee joint; M25.461 Effusion, right knee
CPT/HCPCS: 12004; 73564; 73700; 96361; 96374; 99284; J2004

== ENCOUNTER → 2025-02-05 13:11 | Outpatient (BNV) | payer OTHER, SELFPAY | PROVIDERS: Visit Provider Radiology Diagnostic Radiology | DX: Z04.3 Encounter for examination and observation following other accident (principal); S39.022A Laceration of muscle, fascia and tendon of lower back, initial encounter; M25.462 Effusion, left knee; Z96.651 Presence of right artificial knee joint | CPT/HCPCS: 73564; 73700 ==

== ENCOUNTER 2025-02-11 13:49 | Outpatient (AMB) | payer MEDICARE, SELFPAY ==
--- NOTE | 2025-02-11 13:51 | MHC.OFFVIS ---
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 Patient reports that she took a fall on 02/05/25, she was getting something out of her car when she tripped. She was seen at [facility], where she was given stitches and put on antibiotics. She has a few doses left to take of this. She has purple discoloration of bilateral lower legs at baseline but the right has become worse after this injury. She has very thin skin and is bruising very easy - so she is being worked up for this. Currently her pain has improved, but she is feeling pain with flexion due to the stitches. She has been using a small amount of neosporin and non stick, she has not been wearing this at night. Washing with soap and water. 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 Patient had a right total knee arthroplasty performed 15+ years ago in [place]. Patient reports that she took a fall on 02/05/25, she was getting something out of her car when she tripped. She was seen at [facility], where she was given stitches and put on antibiotics. She has a few doses left to take of this. She has purple discoloration of bilateral lower legs at baseline but the right has become worse after this injury. She has very thin skin and is bruising very easy - so she is being worked up for this. Currently her pain has improved, but she is feeling pain with flexion due to the stitches. She has been using a small amount of neosporin and non stick, she has not been wearing this at night. Washing with soap and water. Review of Systems Const All systems reviewed & are unremarkable except as noted in HPI and below Physical Exam Vital Signs: BMI result Body Mass Index 32.9 Const General: cooperative, healthy appearing and no acute distress Resp Effort & Inspection: normal respiratory effort and able to speak in complete sentences Extrem Other: Right knee sutures are clean dry and intact. There is no surrounding erythema or drainage. No signs of infection. Full flexion and extension. NVI. Psych Appearance: grossly normal Mental Status: mental status grossly normal Attitude: cooperative Assessment & Plan Assessment & Plan (1) Laceration of right knee: Code(s): S81.011A - Laceration without foreign body, right knee, initial encounter Category: Medical (2) History of total knee arthroplasty: Code(s): Z96.659 - Presence of unspecified artificial knee joint Category: Surgical Plan Ruma is a 69 year old female who presents today for a New Patient visit with complaints of a right knee laceration. Patient had a right total knee arthroplasty performed 15+ years ago in [place]. Patient reports that she took a fall on 02/05/25, she was getting something out of her car when she tripped. She was seen at [facility], where she was given stitches and put on antibiotics. She has a few doses left to take of this. She has purple discoloration of bilateral lower legs at baseline but the right has become worse after this injury. She has very thin skin and is bruising very easy - so she is being worked up for this. Currently her pain has improved, but she is feeling pain with flexion due to the stitches. She has been using a small amount of neosporin and non stick, she has not been wearing this at night. Washing with soap and water. While in the office today, a wound check was performed. There are no signs of infection at this time. A CT scan and x-rays were obtained in the ED and were negative for an open joint as well as no fracture or dislocation present. Patient is currently taking Keflex 500 mg p.o. Q8H. She is due to complete her course of antibiotics in the next few days. She was educated on signs of infection, which are as follows but not limited to erythema, edema, drainage, or warmth. If she is to experience any of these symptoms, she must contact the office immediately or present to the ED for evaluation. Patient understands and accepts. I would like to see the patient in 1 week for anticipation of suture removal, sooner if needed. Medications: Discontinued morphine Partial Fill upon patient request. Discontinued Reason: Patient no longer taking 15 mg PO Q8H PRN 12 tabs 0RF severe pain (scale score 7-10) Coding Level of Care Code New Pt Level 3 (03828) Diagnoses Laceration of right knee S81.011A History of total knee arthroplasty Z96.659
[2025-02-11 13:56] VITALS: BMI 32.9
== END 2025-02-11 14:23 | disposition home or self-care (01) ==
LOC: HO.HOS 13:50
PROVIDERS: Visit Provider Physician Assistant
DX: S81.011A Laceration without foreign body, right knee, initial encounter (principal); Z96.651 Presence of right artificial knee joint
CPT/HCPCS: 99203

== ENCOUNTER → 2025-02-11 13:49 | Outpatient (BNVA) | payer MEDICARE, SELFPAY | PROVIDERS: Visit Provider Physician Assistant | DX: S81.011A Laceration without foreign body, right knee, initial encounter (principal); Z96.651 Presence of right artificial knee joint | CPT/HCPCS: 99202 ==

== ENCOUNTER 2025-02-19 14:41 | Outpatient (AMB) | payer MEDICARE, SELFPAY ==
--- NOTE | 2025-02-19 14:44 | A.OFFVIS_ITS ---
Intake Visit Reasons: OV-Right knee injury-DOI 02/05/25-Suture removal Intake Note: Ruma is a 69 year old female who presents today for a follow up of her right knee laceration, DOI 02/05/25. Allergies No Known Allergies Allergy (Verified 02/19/25 14:50) [facility] HPI OV-Right knee injury-DOI 02/05/25-Suture removal: Details: Ms. Selina villafana is a 69-year-old female who presents to the office today after sustaining a laceration to the right knee on 02/05/2025. Sutures have remained in place since the date of injury. The patient has been applying topical antibiotic ointment over the area covered with a nonstick gauze and Flavio wrap. Review of Systems Const All systems reviewed & are unremarkable except as noted in HPI and below Physical Exam Const General: cooperative, healthy appearing and no acute distress Resp Effort & Inspection: normal respiratory effort and able to speak in complete sentences Extrem Other: Right knee laceration is intact. Sutures intact. There is some granulation tissue that is forming. Superficial moisture is noted on the skin consistent with consistent topical antibiotic ointment application. No evidence of exudate or signs of infection. Full range of motion without pain. Psych Appearance: grossly normal Mental Status: mental status grossly normal Attitude: cooperative Assessment & Plan Assessment & Plan (1) Laceration of right knee: Code(s): S81.011A - Laceration without foreign body, right knee, initial encounter Category: Medical (2) History of total knee arthroplasty: Code(s): Z96.659 - Presence of unspecified artificial knee joint Category: Surgical Plan Ms. Selina villafana is a 69-year-old female who presents to the office today after sustaining a laceration to the right knee on 02/05/2025. Sutures have remained in place since the date of injury. The patient has been applying topical antibiotic ointment over the area covered with a nonstick gauze and Flavio wrap. While in the office today, sutures were removed and Steri-Strips were applied. I instructed the patient to stop applying topical antibiotic ointment as this is saturating the skin and delaying the healing process. Out of an abundance of caution I sent a prescription for Keflex 500 mg p.o. Q 8 hours x7 days to the pharmacy should the laceration continue to breakdown. I instructed the patient to follow up with her PCP Tuesday or Tuesday of next week for close monitoring of wound healing as the holiday we will likely hinder an appointment later this week. At this time, there is no evidence of deep infection within the knee therefore the patient will continue to follow with PCP for treatment. Medications: Changed From cephalexin 500 mg PO Q8H 15 caps 0RF To cephalexin 500 mg PO Q8H 21 caps 0RF 7 days Coding Level of Care Code Est Pt Level 3 (41672) Diagnoses Laceration of right knee S81.011A History of total knee arthroplasty Z96.659
--- OUTSIDE RECORDS SUMMARY | 2025-02-19 18:28 | XMS_ITS | Encounter Summary ---
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 I offered her [place] location and patient refused. Encounter Details Date Type Department Care Team ([facility] Contact Info) Description 02/19/2025 Telephone Gynecologic Oncology - [address] [phone] Lucrecia Pearl MD [address] [place] [address] Social History Tobacco Use Types Packs/Day Years [...] on file documented as of this encounter Plan of Treatment Upcoming Encounters Date Type Department Care Team (Late st Contact Info) Description 04/10/2025 9:00 AM EST Office Visit Gynecologic Oncology - [address] [place] [address] Lucrecia Pearl MD [address] [place] [address] 06/07/2025 9:45 AM EDT Office Visit [facility] Hematology Oncology [address] [place] [phone] Harpreet-Asha Alex MD [address] [place] [phone] documented as of this encounter Visit Diagnoses Not on filedocumented in this encounter Care Teams Developer Evangelist Relationship Specialty Start Date End Date Rimma John MD [address] [place] [phone] PCP - General Internal Medicine 01/13/24 documented as of this encounter
--- OUTSIDE RECORDS SUMMARY | 2025-02-19 18:28 | XMS_ITS | Clinical Summary ---
Author Organization [facility] Address [address] [place] [address] Care Team Providers Care Shim Plug Cutter Name Role Phone Rimma John MD Primary [...] 6 (six) hours as needed. 0 Active [place]-3 Fatty Acids (Fish Oil) 1000 MG CAPS [...] Group Subscriber ID Effective Dates Phone Address [facility] [id number] 2016-Present 1 [facility] [address] [place] [address] HMO Care Teams Shim Plug Cutter Relationship Specialty Start Date End Date Rimma John MD [address] [place] [address] PCP - General Internal Medicine 03/01/22
--- OUTSIDE RECORDS SUMMARY | 2025-02-19 18:28 | XMS_ITS ---
Author Name [facility] Organization Unknown History of Medication Use Medication Directions Dispensed Refills Start Date End Date Stat us budesonide DR (ENTOCORT EC) 3 mg 24 hr capsule TAKE TWO CAPSULES BY MOUTH EVERY DAY 11/26/2024 active hydroCHLOROthiazide 12.5 mg tablet Take 1 tablet (12.5 mg total) by mouth 1 (one) time each day. 10/02/2024 active ferrous sulfate 325 mg (65 mg elemental iron) tablet TAKE ONE TABLET BY MOUTH EVERY DAY 09/17/2024 active omeprazole (PriLOSEC) [address] capsule TAKE ONE CAPSULE BY MOUTH EVERY MORNING (BEFORE BREAKFAST). 08/26/2024 active ciclopirox (LOPROX) 0.77 % cream APPLY TOPICALLY TWO TIMES A DAY FOR 2 WEEKS REPEAT NEEDED 02/28/2024 active acetaminophen (TYLENOL) 500 mg tablet Take 500 mg by mouth every 6 hours as needed. active cholecalciferol (Vitamin D3) 25 mcg (1,000 unit) tablet Take 1 tablet (1,000 Units total) by mouth 1 (one) time each day. active FLUoxetine (PROzac) 20 mg capsule Take 1 capsule (20 mg total) by mouth 1 (one) time each day. active MULTIVITAMIN ORAL 1tab daily act abelino omega-3 acid ethyl esters (LOVAZA) 1 gram capsule Take 1 Capsule by mouth daily. active Allergies Allergen Reaction Severity Comment Documented Date Source Statu s LISINOPRIL Intense itching and dry cough 01/28/2020 [facility] active SULFAMETHOXAZOLE-T RIMETHOPRIM Gi side effects, severe 08/08/2012 [facility] active Problems Problem Status Onset Date Problem Type Date of Resoluti on Source Chronic low back pain without sciatica active 2019-02-16 ProblemAct [facility] Gallstones active 2015-01-21 ProblemAct [facility] Iron deficiency anemia due to sideropenic dysphagia active 2022-07-06 ProblemAct [facility] Cirrhosis ([facility] V24, [facility] V28) active 2009-09-18 ProblemAct [facility] LVH (left ventricular hypertrophy) active 2021-04-15 ProblemAct [facility] ETOH abuse active 2009-09-16 ProblemAct [facility] Collagenous colitis active 2020-01-01 ProblemAct [facility] Chest pain active 2006-02-10 ProblemAct [facility] Varicose veins with pain active 2018-08-28 ProblemAct [facility] Ascending aorta dilatation ([facility] V24) active 2021-04-17 ProblemAct [facility] Chronic pain of right knee active 2019-02-16 ProblemAct [facility] Heart murmur active 2021-11-03 ProblemAct [facility] Anxiety state active 2006-02-10 ProblemAct [facility] 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 ProblemAct C [facility] Splenic cyst active 2015-01-21 ProblemAct [facility] HTN (hypertension), benign active 2019-11-16 ProblemAct [facility] Bilateral leg edema active 2024-12-07 ProblemAct [facility] Depressive disorder active 2006-02-10 ProblemAct [facility] Nonrheumatic aortic valve stenosis active 2021-06-29 ProblemAct [facility] Renal artery stenosis ([facility] V24) active 2021-06-25 ProblemAct [facility] Mild mitral regurgitation active 2020-11-01 ProblemAct [facility] Vitamin D deficiency active 2009-09-16 ProblemAct [facility] Age-related osteoporosis without current pathological fracture active 2024-05-29 ProblemAct [facility] Hyperlipidemia active 2020-01-28 ProblemAct [facility] Status post total right knee replacement active 2019-02-16 ProblemAct [facility] Elevated blood pressure reading active 2019-02-16 ProblemAct [facility] Immunizations Vaccine Date Source Lot Number Status Influenza trivalent, 0.5mL ( Fluad) 65yo and older 01/04/2024 [facility] [id number] completed Influenza trivalent, 0.5mL ( Fluad) 65yo and older 01/04/2024 [facility] [id number] completed Influenza trivalent, 0.5mL ( Fluad) 65yo and older 01/13/2023 [facility] [id number] completed Influenza trivalent, 0.5mL ( Fluad) 65yo and older 01/13/2023 [facility] [id number] completed Influenza Quadravalent, MDCK , 0.5ml, preservative free (Flucelvax) 6mo and older 02/24/2021 [facility] [id number] completed Influenza Quadravalent, MDCK , 0.5ml, preservative free (Flucelvax) 6mo and older 02/24/2021 [id number] Influenza Quadravalent, MDCK , 0.5ml, preservative free (Flucelvax) 6mo and older 02/24/2021 [facility] [id number] completed Pfizer SARS-CoV-2 COVID-19, mRNA, LNP-S, preservative free 07/19/[address] [id number] completed Pfizer SARS-CoV-2 COVID-19, mRNA, LNP-S, preservative free 07/19/2020 [facility] [id number] completed Pfizer SARS-CoV-2 COVID-19, mRNA, LNP-S, preservative free 06/28/2020 [facility] [id number] completed Pfizer SARS-CoV-2 COVID-19, mRNA, LNP-S, preservative free 06/28/2020 [facility] [id number] completed Influenza Quadravalent, MDCK , 0.5ml, preservative free (Flucelvax) 6mo and older 12/17/2019 [facility] [id number] completed Influenza Quadravalent, MDCK , 0.5ml, preservative free (Flucelvax) 6mo and older 12/17/2019 [facility] [id number] completed Zoster recombinant (Shingrix ) 19yo and older 11/05/2019 [facility] completed Zoster recombinant (Shingrix ) 19yo and older 11/05/2019 [facility] completed Zoster recombinant (Shingrix ) 19yo and older 11/05/2019 [facility] completed Zoster recombinant (Shingrix ) 19yo and older 03/01/2019 [facility] completed Zoster recombinant (Shingrix ) 19yo and older 03/01/2019 [facility] completed Zoster recombinant (Shingrix ) 19yo and older 03/01/2019 [facility] completed Influenza Quadravalent, MDCK , 0.5ml, preservative free (Flucelvax) 6mo and older 02/16/2019 [facility] [id number] completed Influenza Quadravalent, MDCK , 0.5ml, preservative free (Flucelvax) 6mo and older 02/16/2019 [facility] [id number] completed Influenza trivalent, 0.5mL, preservative free (Fluarix; FluLaval; Fluzone) ages 6mo and older (Afluria) 3 years and older 01/07/2018 [facility] [id number] completed Influenza trivalent, 0.5mL, preservative free (Fluarix; FluLaval; Fluzone) ages 6mo and older (Afluria) 3 years and older 01/07/2018 [facility] [id number] completed Influenza, Unspecified 01/07/2018 [facility] [id number] co mpleted Influenza, Unspecified 01/07/2018 [facility] [id number] co mpleted Influenza, Unspecified 01/07/2018 [facility] [id number] co mpleted Influenza trivalent, 0.5mL, preservative free (Fluarix; FluLaval; Fluzone) ages 6mo and older (Afluria) 3 years and older 01/01/2016 [facility] [id number] completed Influenza trivalent, 0.5mL, preservative free (Fluarix; FluLaval; Fluzone) ages 6mo and older (Afluria) 3 years and older 01/01/2016 [facility] [id number] completed Influenza trivalent, 0.5mL, preservative free (Fluarix; FluLaval; Fluzone) ages 6mo and older (Afluria) 3 years and older 01/21/2015 [facility] [id number] completed Influenza trivalent, 0.5mL, preservative free (Fluarix; FluLaval; Fluzone) ages 6mo and older (Afluria) 3 years and older 01/21/2015 [facility] [id number] completed Pneumococcal polysaccharide 23 valent (Pneumovax 23) 2yo and older 05/16/2013 [facility] [id number] com pleted Pneumococcal polysaccharide 23 valent (Pneumovax 23) 2yo and older 05/16/2013 [facility] [id number] com pleted Tdap Tetanus diptheria acell ular pertussis (Boostrix; Adacel) 7yo and older 05/16/2013 [facility] [id number] completed Tdap Tetanus diptheria acell ular pertussis (Boostrix; Adacel) 7yo and older 05/16/2013 [facility] [id number] completed Tdap Tetanus diptheria acell ular pertussis (Boostrix; Adacel) 7yo and older 05/16/2013 [facility] [id number] completed
--- OUTSIDE RECORDS SUMMARY | 2025-02-19 18:28 | XMS_ITS | Clinical Summary ---
Author Organization [facility] [address] [facility] Address [address] [place] [address] Phone Care Team Providers Care Rug Weaver Name Role Phone Rimma John MD Primary Care Provider [phone] Allergies Active Allergy Reactions Criticality Noted Date [...] with ultrasound in 12/2015 or symptomatic Cirrhosis (CMS/HCC V24, CMS/HCC V28) 09/18/2009 ETOH abuse 09/16/2009 Overview (03/29/2024): Quit etoh in 2007. Then restarted and last quit in 2012. 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 Mahan in [facility] Encounters Date Type Department Care Team Description 02/19/2025 Telephone Gynecologic Oncology - [address] [address] Lucrecia Pearl MD 02/04/2025 Telephone Gynecologic Oncology - [address] [address] Rachel Rodriguez [place] 01/29/2025 Telephone Gynecologic Oncology - [address] [address] Rachel Rodriguez [place] 01/15/2025 6:55 AM EDT - 01/15/2025 11:59 PM EDT Hospital Encounter [facility] CT Scan [address] [place] [address] Bilateral leg edema Discharge Disposition: Home or Self Care 12/07/2024 10:45 AM EDT Office Visit [facility] Hematology Oncology [address] [place] [address] Asha Back MD Spontaneous ecchymoses (Primary Dx); Iron deficiency anemia due to sideropenic dysphagia; Bilateral leg edema; Alcoholic cirrhosis of liver without ascites (CMS/HCC V24, [facility] V28) from Last 3 Months Immunizations Immunization [...] COMMENT: right UPPER GASTROINTESTINAL ENDOSCOPY 12/27/2019 PROCEDURE: ND UPPER GI ENDOSCOPY PERFORMED; COMMENT: Small gastric ulcers, duodenal erosions, biopsies obtained: No evidence of celiac disease, no evidence of Helicobacter pylori infection. COLONOSCOPY 12/27/2019 PROCEDURE: HISTORICAL COLONOSCOPY; COMMENT: Visually normal, random biopsies obtained to assess chronic diarrhea: Biopsies = collagenous colitis. BREAST SURGERY Bilateral PROCEDURE: ND UNLISTED PROCEDURE BREAST; COMMENT: inverted nipple correction OTHER SURGICAL HISTORY 07/03/2021 PROCEDURE: OUTSIDE ENDOSCOPY; COMMENT: Dr. Fan [facility] Medical History Medical History Date Comments Hypertension [...] AM EST Office Visit Gynecologic Oncology - [address] [place] [address] Lucrecia Pearl MD [address] [place] [address] 06/07/2025 9:45 AM EDT Office Visit [facility] Hematology Oncology [address] [place] [address] Asha Ramos MD [address] [place] [address] Health Maintenance Due Date Last [...] 01/04/2024, 01/04/2024 Colorectal Cancer Screening: Colonoscopy 12/26/2029 12/27/2019, 12/27/2019 RSV Immunization Adult Patients (1 - [...] neoplasm of breast LIPID PANEL Routine 01/04/2024 HM COLONOSCOPY Routine 12/27/2019 HEPATITIS C SCREENING Routine [...] ultrasound recommended for further characterization. Telerad PA ([id number]) -------- FINAL REPORT -------- Dictated By: Essie Villa Dictated Date: 01/22/2025 14:44 ET Assigned Physician: Essie Villa Reviewed and Electronically Signed By: Essie Villa Signed Date: 01/22/2025 14:54 ET Workstation ID: [id number] Transcribed By: Self Edit Transcribed Date: 01/22/2025 14:44 ET Narrative 01/22/2025 2:54 PM EDT History: Bilateral lower extremity swelling. Question abdominal lymphadenopathy or mass. Comparison: Lung screening CT 06/15/24 Technique: Helical volumetric imaging of the abdomen and pelvis was performed following oral contrast and during the uneventful intravenous administration of 90 cc Isovue-370. DLP: 1125.71 mGy/cm NewsboundpeDwellAware VCT Iterative reconstruction technique Findings: Mild multichamber [...] of 90 cc Isovue-370. DLP: 1125.71 mGy/cm NewsboundpeDwellAware VCT Iterative reconstruction technique Findings: Mild multichamber [...] Pelvicultrasound recommended for further characterization. Teler[facility] ([id number]) -------- FINAL REPORT -------- Dictated By: Essie Villa Dictated Date: 01/22/2025 14:44 ET Assigned Physician: Essie Villa Reviewed and Electronically Signed By: Essie Villa Signed Date: 01/22/2025 14:54 ET Workstation ID: [id number] Transcribed By: Self Edit Transcribed Date: 01/22/2025 14:44 ET Subramcharles Ramos MD IM CT PROCEDURES F inal Result * Basic metabolic panel (08/29/2024 10:30 AM EDT) Sodium 141 133 - 145 mmol/L LAB CHEMISTRY METHOD 08/29/2024 3:34 PM EDT [facility] Potassium 3.7 3.5 - 5.5 mmol/L LAB CHEMISTRY METHOD 08/29/2024 3:34 PM EDT [facility] Chloride 108 96 - 110 mmol/L LAB CHEMISTRY METHOD 08/29/2024 3:34 PM EDT [facility] CO2 28 21 - 32 mmol/L LAB CHEMISTRY METHOD 08/29/2024 3:34 PM EDT [facility] Anion Gap 5 3 - 11 LAB CHEMISTRY METHOD 08/29/2024 3:34 PM EDT [facility] Glucose 96 70 - 100 mg/dL LAB CHEMISTRY METHOD 08/29/2024 3:34 PM EDT [facility] BUN 17 5 - 25 mg/dL LAB CHEMISTRY METHOD 08/29/2024 3:34 PM EDT [facility] Creatinine 0.68 0.50 - 1.10 mg/dL LAB CHEMISTRY METHOD 08/29/2024 3:34 PM EDT [facility] eGFR 96 >=60 mL/min/1. 73m2 LAB CHEMISTRY METHOD 08/29/2024 3:34 PM EDT [facility] Comment:Calculation based on the Chronic Kidney Disease Epidemiology Collaboration (CKD-EPI) equation refit without adjustment for race. BUN/Creatinine Ratio 25.0 LAB CHEMISTRY METHOD 08/29/2024 3:34 PM EDT [facility] Calcium 9.3 8.5 - 10.5 mg/dL LAB CHEMISTRY METHOD 08/29/2024 3:34 PM EDT [facility] Blood Venous blood specimen / Unknown Venipuncture / Unknown 08/29/2024 10:30 AM EDT 08/29/2024 10:30 AM EDT us Rimma John MD LAB BLOOD ORDERABLES Final Resul t [facility] [address] [place] [address], * CT Lung Screening (06/15/2024 7:53 AM [...] Signed Date: 06/15/2024 09:05 ET Workstation ID: [id number] Transcribed By: Self Edit Transcribed Date: 06/15/2024 [...] Signed Date: 06/15/2024 09:05 ET Workstation ID: [id number] Transcribed By: Self Edit Transcribed Date: 06/15/2024 08:44 ET us Jessica Lu MD IM CT PROCEDURES Final Result * BD Bone Density DXA Axial Skeleton (05/09/2024 9:35 AM EST) Anatomical Region Laterality Modality Wrist, Hip, L-spine Bone Densito metry 05/09/2024 12:2 5 PM EST Impressions 05/09/2024 12:27 PM EST Impression: Osteoporosis by WHO criteria. [facility] Department of Internal Medicine recommends using National [...] alternative screening schedule based on rani Lewis., [facility] April 15, 2011 for patients with [...] Signed Date: 05/09/2024 12:27 ET Workstation ID: [id number] Transcribed By: Self Edit Transcribed Date: 05/09/2024 [...] IMPRESSION: Impression: Osteoporosis by WHO criteria. [facility] Department of Internal Medicine recommendsusing National Osteoporosis [...] alternative screening schedule based on rani Lewis., NEJJanuary 2011 for patients with osteopenia (based on [...] Signed Date: 05/09/2024 12:27 ET Workstation ID: [id number] Transcribed By: Self Edit Transcribed Date: 05/09/2024 12:25 ET us Rimma John MD IMG DXA PROCEDURES Final Result * SCREENING MAMMOGRAPHY BI 2-VIEW BREAST INC CAD (01/13/2024 11:19 AM EDT) Anatomical Region Laterality Modality Radiographic Etgan ging 09/01/2023 9:24 AM EDT Narrative 01/13/2024 [...] cancer risk category Low (<15%) Location: [facility], [address] [place] [address], [id number], [phone] Procedure Note Amadeo Bonilla MD - 01/24/2024 [...] cancer risk category Low (<15%) Location: [facility], [address] [place] [address], [id number], [phone] Result [facility] Rimma John MD IMG XR PROCEDURES Final Result * (ABNORMAL) Lipid panel (01/04/2024) LDL/HDL Ratio 3 0 - 4 Triglycerides 94 0 - 150 mg/dL Cholesterol 194 0 - 200 mg/dL HDL 74 >=40 mg/dL LDL Cholesterol 102(A) 0 - 100 mg/dL Blood Venous blood specimen / Unknown Result [facility] Historical Provider LAB BLOOD ORDERABLES Sujey l Result * Colonoscopy (12/27/2019) Colonoscopy Abstracted, no interpretation Anatomical Region Laterality Modality Other Result [facility] Historical Provider HEALTH MAINTENANCE Final Result * Hepatitis C Screening (09/16/2009) Hepatitis C Screening Abstracted Historical Provider HEALTH MAINTENANCE Final Result from Last 3 Months or Most Recently Relevant to Health Maintenance Insurance [place] MEDICARE ADVANTAGE Care Teams Rug Weaver Relationship Specialty Start Date End Date Rimma John MD [address] [place] [phone] PCP - General Internal Medicine 01/13/24
--- OUTSIDE RECORDS SUMMARY | 2025-02-19 18:28 | XMS_ITS | Clinical Summary ---
Author Organization [facility] Address [address] [place], [place] [id number] Phone Care Team Providers Care Gas Line Installer Supervisor Name Role Phone Ricki Lopez Primary Care Provider [phone] Allergies No known active allergies Medications FLUOXETINE HCL (FLUOXETINE ORAL) Active Medication-Free Text Ibuprofen Active TURMERIC ROOT EXTRACT ORAL Active FOLIC ACID/MULTIVIT,I LUPE,PIER HAND (ONE DAILY FOR WOMEN ORAL) Active MELOXICAM [...] topic Medical Devices Not on file Insurance [facility] MEDICARE PPO BLUE REPLACEMENT [facility] MEDICARE PPO BLUE REPLACEMENT [facility] MEDICARE PPO BLUE REPLACEMENT [facility] MEDICARE PPO BLUE REPLACEMENT [facility] MEDICARE PPO BLUE REPLACEMENT [place] BLUE REPLACEMENT Care Teams Gas Line Installer Supervisor Relationship Specialty Start Date End Date Ricki Lopez PA [address] [place] [id number] [email or web address] PCP - General Physician Abrasive Coating Machine Operator 06/22/24 Additional Source Comments The information contained in this document represents components of the legal health record. It is not the complete legal health record.[facility]
== END 2025-02-19 15:14 | disposition home or self-care (01) ==
LOC: HO.HOS 14:42
PROVIDERS: Visit Provider Physician Assistant
DX: S81.011A Laceration without foreign body, right knee, initial encounter (principal); Z96.659 Presence of unspecified artificial knee joint
CPT/HCPCS: 99213

== ENCOUNTER → 2025-02-19 14:41 | Outpatient (BNVA) | payer MEDICARE, SELFPAY | PROVIDERS: Visit Provider Physician Assistant | DX: S81.011D Laceration without foreign body, right knee, subsequent encounter (principal); W19.XXXD Unspecified fall, subsequent encounter; Z48.02 Encounter for removal of sutures; Z96.659 Presence of unspecified artificial knee joint | CPT/HCPCS: 99212 ==

== ENCOUNTER 2025-02-20 14:24 | Emergency (ER) | payer MEDICARE, SELFPAY ==
[2025-02-20 14:34] VITALS: BP 184/81; PULSE 71; RESP 16; TEMP 36.6; O2SAT 99; BMI 33.0
--- NOTE | 2025-02-20 14:36 | ED_ITS ---
HPI - Skin/Abscess/Foreign Bdy General Chief complaint: Wound/Laceration Stated complaint: removed stitches yesterday, wound reopened Time Seen by Provider: 02/20/25 14:51 Source: patient Mode of arrival: ambulatory Limitations: no limitations History of Present Illness ED Provider: HPI narrative: 69-year-old woman presenting with delayed right knee healing after an injury she sustained on February 05, yesterday she went to see orthopedics started on antibiotics, giving recommendations presenting wondering whether she needs wound care. Related Data Home Medications ?Medication ?Instructions ?Recorded ?Confirmed budesonide 3 mg 0 mg PO 02/11/25 capsule,delayed,extended release ferrous sulfate 325 mg (65 mg 325 mg PO DAILY 02/11/25 iron) tablet fluoxetine 10 mg tablet 10 mg PO DAILY 02/11/25 hydrochlorothiazide 12.5 mg tablet 12.5 mg PO DAILY omeprazole 20 mg capsule,delayed 20 mg PO DAILY release Previous Rx's ?Medication ?Instructions ?Recorded cephalexin 500 mg capsule 500 mg PO Q8H 7 days #21 cap s 02/19/25 Allergies Allergy/AdvReac Type Severity Reaction Status Date / Time No Known Allergies Allergy Verified 02/20/25 14:40 Review of Systems 2 Constitutional: Constitutional: Reports as per HPI Physical Exam 2 Exam: Exam: Vital Signs: Vital Signs: Last Vital Signs Temp 97.9 F 02/20/25 14:34 Pulse 71 02/20/25 14:34 Resp 16 02/20/25 14:34 BP 184/81 H 02/20/25 14:34 Pulse Ox 99 02/20/25 14:34 O2 Del Method Room Air 02/20/25 14:34 BMI result Body Mass Index 33.0 Const: Other: Proximal and distal compartments are soft there is wound dehiscence no srinath purulence Patient herself alert and oriented x4 Course Course Course Narrative: This is a Rapid Medical Exam performed in triage by Deana Romo PA-C. Full HPI, ROS and PE to be performed by primary ED provider. 69 year-old female with a past medical history of a right knee replacement presents to the ED c/o wound dehiscence s/p suture removal at Ortho yesterday. patient was seen at our ED 02/05 s/p fall and had 22 sutures placed. Admits to pain and drainage PE: +R knee wound dehiscence with some warmth. Plan: Labs Medical Decision Making Medical Decision Making [facility] Narrative: 3:33 PM 02/20/2025 (Dr. Chas Salmon): Patient evaluated by [facility] yesterday, recommended no topical antibiotics, follow up with the PCP, and cephalexin Q 8 hours for the next 1 week, I think it is very reasonable for the patient to follow up with her PCP but also wound care, I also recommend wet-to-dry dressings, and return precautions see my discharge instructions Differential Diagnosis Differential Diagnoses: The differential diagnosis associated with the presentation includes Admission/Observation Consideration of admission/observation: Escalation of care including admission/observation considered External Record Review External record reviewed: Office record Prescription Management I considered prescription management with: Antibiotic Discharge Plan Discharge Clinical Impression: Delayed healing of traumatic wound Additional Instructions: For now I will continue antibiotics, wet-to-dry dressing daily, as discussed with a gauze squeeze it dry apply to the wound and then Flavio wrap, when you remove it you can wet a gently again, this will remove the old skin and promote skin healing, I think it is a good idea for you to see a PCP to monitor but also see wound care, and as we discussed srinath pus from the wound you should come back to the ER, there maybe some redness around the skin that is likely going to be consistent with increased blood flow to the area for healing but this will take some time to heal I think as because it is over the knee joint, I would also make sure that you have follow up with the Orthopedics as well in case wound needs debridement or revision, in any case any other issues concerns come back to the ER Prescriptions: No Action cephalexin 500 mg capsule 500 mg PO Q8H 7 Days Qty: 21 0RF fluoxetine 10 mg tablet 10 mg PO DAILY ferrous sulfate 325 mg (65 mg iron) tablet 325 mg PO DAILY omeprazole 20 mg capsule,delayed release(DR/EC) 20 mg PO DAILY budesonide 3 mg capsule,delayed,extend.release 0 mg PO hydrochlorothiazide 12.5 mg tablet 12.5 mg PO DAILY Referrals: [facility] [Provider Group] - 1 week Clinical Impression: Delayed healing of traumatic wound Print Language: Indonesian
--- NOTE | 2025-02-20 15:40 | PC.NURSE ---
Addendum entered by Alyssa Lucas RN 02/20/25 15:59: ED attending made note that patient did not need labs at this time. Addendum entered by Alyssa Lucas RN 02/20/25 15:59: Ed attending Original Note: Patient presented to ED with open right knee would after falling in her driveway on . Patient previously had knee stitched up and had stitches removed yesterday. Wound bed open and reddened. Provider at bedside dressing knee wound. VSS.
--- OUTSIDE RECORDS SUMMARY | 2025-02-20 17:32 | XMS_ITS | Clinical Summary ---
Author Organization [facility] Address [address] [place] [address] Care Team Providers Care Business Technology Analyst Name Role Phone Rimma John MD Primary Care Provider [phone] Allergies No known active allergies Medications Medication [...] 6 (six) hours as needed. 0 Active Newport-3 Fatty Acids (Fish Oil) 1000 MG CAPS [...] Group Subscriber ID Effective Dates Phone Address [facility] [id number] 2016-Present [facility] [address] [place] [address] HMO Care Teams Business Technology Analyst Relationship Specialty Start Date End Date Rimma Jhon MD [address] [place] [address] PCP - General Internal Medicine 03/01/22
--- OUTSIDE RECORDS SUMMARY | 2025-02-20 17:32 | XMS_ITS | Encounter Summary ---
Author Organization [facility] [place] [address] Care Team Providers Care Boomboat Operator Name Role Phone Rimma John MD Primary Care Provider [phone] Reason for Visit * Reason Onset Date Comments Suture / Staple Removal 02/20/2025 Busted o pen Encounter Details Date Type Department Care Team (Late st Contact Info) Description 02/20/2025 Telephone Adult Medicine [address] [phone] Rimma John MD [address] [place] [address] Social History Tobacco Use Types Packs/Day Years [...] as of this encounter Progress Notes * Erendira Jordan RN - 02/20/2025 2:43 PM EST Called Yenifer mccrary left vm to return call-did they reach out to ortho? * Doris Melendez - 02/20/2025 1:47 PM EST Patient call requires triage: Symptoms patient is presenting: Patient daughter is calling stating that her mom was seen in Hospital on 02/12/25 she received 22 stitches. She was by [facility] to get her stiches taking out 02/19/25 but by the end of the day it busted wide open. How long has patient had these symptoms?: 1 day For ALL patients calling to schedule any appointment (routine, sick visit, follow up, consult, etc.) in the outpatient setting please ask the following questions: Do you have fever of higher than 101, sore throat with difficulty swallowing or severe shortness ofbreath? no If YES to any of these above symptoms, send a message to triage and do not book. Red dot. If no, an audio or video visit should be booked. Have you had close contact with someone with Coronavirus in the last 14 days? no Have you traveled abroad? no Have you traveled recently to another state outside of [place], [place], [place], [place], [place], [place], [place]? no o If yes, did you quarantine for 14 days or have a negative covid test? no If yes to any of the above, patient is not to be scheduled in office until after 14 day quarantine or negative covid test. If pain or injury related was it due to an accident at work or from a motor vehicle accident? If yes, date of accident/Injury: No If yes, gather 3rd constitution party insurance information Third Libertarian Information: not applicable PCP: Rimma John MD Payor: HANNAH RODRIGUEZ - [place] MEDIC[place]ANTAGE / Plan: [place] [facility] MEDIBLUE / Product Type: *No Product type* / documented in this encounter Plan of Treatment Upcoming Encounters Date Type Department Care Team (Late st Contact Info) Description 04/10/2025 9:00 AM EST Office Visit Gynecologic Oncology - [address] [place] [phone] Lucrecia Pearl MD [address] [place] [address] 06/07/2025 9:45 AM EDT Office Visit [facility] Hematology Oncology [address] [place] [phone] Asha Ramos MD [address] [place] [phone] documented as of this encounter Visit Diagnoses Not on filedocumented in this encounter Care Teams Boomboat Operator Relationship Specialty Start Date End Date Rimma John MD [address] [place] [phone] PCP - General Internal Medicine 01/13/24 documented as of this encounter
--- OUTSIDE RECORDS SUMMARY | 2025-02-20 17:32 | XMS_ITS | Encounter Summary ---
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 I offered her [place] location and patient refused. Encounter Details Date Type Department Care Team ([facility] Contact Info) Description 02/19/2025 Telephone Gynecologic Oncology - [address] [phone] Lucrecia Pearl MD [address] [place] [address] Social History Tobacco Use Types Packs/Day Years [...] AM EST Office Visit Gynecologic Oncology - [address] [place] [address] Lucrecia Pearl MD [address] [place] [address] 06/07/2025 9:45 AM EDT Office Visit [facility] Hematology Oncology [address] [place] [phone] Harpreet-Asha Alex MD [address] [place] [phone] documented as of this encounter Visit Diagnoses Not on filedocumented in this encounter Care Teams Manager Cable Relationship Specialty Start Date End Date Rimma John MD [address] [place] [phone] PCP - General Internal Medicine 01/13/24 documented as of this encounter
--- OUTSIDE RECORDS SUMMARY | 2025-02-20 17:32 | XMS_ITS | Clinical Summary ---
Author Organization [facility] Address [address] [place], [place] [phone] Phone Care Team Providers Care Medical Technologist Hematology Name Role Phone Ricki Lopez Primary Care Provider [phone] Allergies No known active allergies Medications FLUOXETINE HCL (FLUOXETINE ORAL) Active Medication-Free Text Ibuprofen Active TURMERIC ROOT EXTRACT ORAL Active FOLIC ACID/MULTIVIT,I LUPE,VOCATIONAL PLACEMENT SPECIALIST (ONE DAILY FOR WOMEN ORAL) Active MELOXICAM [...] topic Medical Devices Not on file Insurance [facility] MEDICARE PPO BLUE REPLACEMENT [facility] MEDICARE PPO BLUE REPLACEMENT [facility] MEDICARE PPO BLUE REPLACEMENT [facility] MEDICARE PPO BLUE REPLACEMENT [facility] MEDICARE PPO BLUE REPLACEMENT [place] BL[place] REPLACEMENT Care Teams Medical Technologist Hematology Relationship Specialty Start Date End Date Ricki Lopez PA [address] [place] [phone] [email or web address] PCP - General Physician Operations Research Analyst 06/22/24 Additional Source Comments The information contained in this document represents components of the legal health record. It is not the complete legal health record.[facility]
--- OUTSIDE RECORDS SUMMARY | 2025-02-20 17:33 | XMS_ITS | Clinical Summary ---
Author Organization [facility] [address] [facility] Address [address] [place] [address] Phone Care Team Providers Care Beam Carrier Hauler Pusher Name Role Phone Rimma John MD Primary Care Provider Allergies Active Allergy Reactions Criticality Noted Date [...] disorder 02/10/2006 Overview (03/29/2024): Dr. Mahan in [facility] Encounters Date Type Department Care Team Description 02/20/2025 Telephone Adult Medicine [address] [phone] Rimma John MD 02/19/2025 Telephone Gynecologic Oncology - [address] [phone] Lucrecia Pearl MD 02/04/2025 Telephone Gynecologic Oncology - [address] [phone] Rachel Rodriguez MA 01/29/2025 Telephone Gynecologic Oncology - [address] [phone] Rachel Rodriguez MA 01/15/2025 6:55 AM EDT - 01/15/2025 11:59 PM EDT Hospital Encounter [facility] CT Scan [address] [place] [phone] Bilateral leg edema Discharge Disposition: Home or Self Care 12/07/2024 10:45 AM EDT Office Visit [facility] Hematology Oncology [address] [place] [phone] Subramonia-Asha Meeks MD Spontaneous ecchymoses (Primary Dx); Iron deficiency [...] years and older 01/07/2018,01/01/2016,01/21/2015 Influenza, Unspecified 01/07/2018 allyve SARS-CoV-2 COVID-19, mRNA, LNP-S, preservative free 07/19/2020,06/28/2020 [...] COMMENT: right UPPER GASTROINTESTINAL ENDOSCOPY 12/27/2019 PROCEDURE: MS UPPER GI ENDOSCOPY PERFORMED; COMMENT: Small gastric ulcers, duodenal erosions, biopsies obtained: No evidence of celiac disease, no evidence of Helicobacter pylori infection. COLONOSCOPY 12/27/2019 PROCEDURE: HISTORICAL COLONOSCOPY; COMMENT: Visually normal, random biopsies obtained to assess chronic diarrhea: Biopsies = collagenous colitis. BREAST SURGERY Bilateral PROCEDURE: MS UNLISTED PROCEDURE BREAST; COMMENT: inverted nipple correction OTHER SURGICAL HISTORY 07/03/2021 PROCEDURE: OUTSIDE ENDOSCOPY; COMMENT: Dr. Fan [facility] Medical History Medical History Date [...] AM EST Office Visit Gynecologic Oncology - [address] [place] [address] Lucrecia Pearl MD [address] [place] [address] 06/07/2025 9:45 AM EDT Office Visit [facility] Hematology Oncology [address] [place] [address] Asha Ramos MD [address] [place] [address] Health Maintenance Due Date Last [...] origin. Pelvic ultrasound recommended for further characterization. [employer] [facility] ([id number]) -------- FINAL REPORT -------- Dictated By: Essie Villa Dictated Date: 01/22/2025 14:44 ET Assigned Physician: Essie Villa Reviewed and Electronically Signed By: Essie Villa Signed Date: 01/22/2025 14:54 ET Workstation ID: [id number] Transcribed By: Self Edit Transcribed Date: 01/22/2025 14:44 ET Narrative 01/22/2025 2:54 PM EDT History: Bilateral lower extremity swelling. Question abdominal lymphadenopathy or mass. Comparison: Lung screening CT 06/15/24 Technique: Helical volumetric imaging of the abdomen and pelvis was performed following oral contrast and during the uneventful intravenous administration of 90 cc Isovue-370. DLP: 1125.71 mGy/cm Angel Eye Camera SystemspeLa Maison Interiors VCT Iterative reconstruction technique Findings: Mild multichamber [...] of 90 cc Isovue-370. DLP: 1125.71 mGy/cm [employer] Camera System[employer] Inter[employer] VCT Iterative reconstruction technique Findings: Mild multichamber [...] Pelvicultrasound recommended for further characterization. [employer] [facility] ([id number]) -------- FINAL REPORT -------- Dictated By: Essie Villa Dictated Date: 01/22/2025 14:44 ET Assigned Physician: Essie Villa Reviewed and Electronically Signed By: Essie Villa Signed Date: 01/22/2025 14:54 ET Workstation ID: [id number] Transcribed By: Self Edit Transcribed Date: 01/22/2025 14:44 ET us Subramony Subramlori-Abi [facility] [place] inal Result * Basic metabolic panel (08/29/2024 10:30 AM EDT) Sodium 141 133 - 145 mmol/L LAB CHEMISTRY METHOD 08/29/2024 3:34 PM EDT [facility] Potassium 3.7 3.5 - 5.5 mmol/L LAB CHEMISTRY METHOD 08/29/2024 3:34 PM EDT [facility] Chloride 108 96 - 110 mmol/L LAB CHEMISTRY METHOD 08/29/2024 3:34 PM EDT [facility] CO2 28 21 - 32 mmol/L LAB CHEMISTRY METHOD 08/29/2024 3:34 PM EDT [facility] Anion Gap 5 3 - 11 LAB CHEMISTRY METHOD 08/29/2024 3:34 PM EDT [facility] Glucose 96 70 - 100 mg/dL LAB CHEMISTRY METHOD 08/29/2024 3:34 PM EDT [facility] BUN 17 5 - 25 mg/dL LAB CHEMISTRY METHOD 08/29/2024 3:34 PM EDT [facility] Creatinine 0.68 0.50 - 1.10 mg/dL LAB CHEMISTRY METHOD [facility] e[facility] 96 >=60 mL/min/1. 73m2 LAB CHEMISTRY METHOD 08/29/2024 3:34 PM EDT [facility] Comment:Calculation based on the Chronic Kidney Disease Epidemiology Collaboration (CKD-EPI) equation refit without adjustment for race. BUN/Creatinine Ratio 25.0 LAB CHEMISTRY METHOD 08/29/2024 3:34 PM T [facility] Calcium 9.3 8.5 - 10.5 mg/dL LAB CHEMISTRY METHOD 08/29[facility]24 [facility] Blood Venous blood specimen / Unknown Venipuncture / Unknown 08/29/2024 10:30 AM EDT 08/29/2024 10:30 AM EDT us Rimma John MD LAB BLOOD ORDERABLES Final Resul t [facility] [address] [place] [address], * CT Lung Screening (06/15/2024 7:53 AM [...] Signed Date: 06/15/2024 09:05 ET Workstation ID: [id number] Transcribed By: Self Edit Transcribed Date: 06/15/2024 [...] Signed Date: 06/15/2024 09:05 ET Workstation ID: [id number] Transcribed By: Self Edit Transcribed Date: 06/15/2024 08:44 ET us Jessica Lu MD IM CT PROCEDURES Final Result * BD Bone Density DXA Axial Skeleton (05/09/2024 9:35 AM EST) Anatomical Region Laterality Modality Wrist, Hip, L-spine Bone Densito metry 05/09/2024 12:2 5 PM EST Impressions 05/09/2024 12:27 PM EST Impression: Osteoporosis by WHO criteria. [facility] Department of Internal Medicine recommends using [...] alternative screening schedule based on rani Lewis., [facility] April 15, 2011 for patients with [...] Signed Date: 05/09/2024 12:27 ET Workstation ID: [id number] Transcribed By: Self Edit Transcribed Date: 05/09/2024 [...] IMPRESSION: Impression: Osteoporosis by WHO criteria. [facility] Department of Internal Medicine recommendsusing National [...] alternative screening schedule based on rani Lewis., NEJMJanuary 2011 for patients with osteopenia (based on [...] Signed Date: 05/09/2024 12:27 ET Workstation ID: [id number] Transcribed By: Self Edit Transcribed Date: 05/09/2024 [...] Breast cancer risk category Low (<15%) Location: [facility], [address] [place] [address], [place], [address], [phone] Procedure Note Amadeo Bonilla MD - 01/24/2024 This is a summary report. The complete report is available in thepatient's medical record. If you cannot access the medical record, pleasecontact the sending organization for a detailed fax or copy. Full field digital screening tomosynthesis mammography, reviewed with CADana maria compared to previous. The breasts are composed of fatty andfibroglandular tissue. No suspicious mass, architectural distortion orsuspicious calcifications are identified. IMPRESSION: : No mammographic evidence of malignancy. BIRADS 1-Negative; N. Breast density: The breasts have scattered areas of fibroglandulardensity. 5 year breast cancer risk assessment 1.4 % Lifetime breast cancer risk assessment 4.9 % Breast cancer risk category Low (<15%) Location: [facility], [address] [place] [address], [phone], [phone] Rimma John MD IMG XR PROCEDURES Final Result * (ABNORMAL) Lipid panel (01/04/2024) [facility] LDL/HDL Ratio 3 0 - 4 Triglycerides 94 0 - 150 mg/dL Cholesterol 194 0 - 200 mg/dL HDL 74 >=40 mg/dL LDL Cholesterol 102(A) 0 - 100 mg/dL Blood Venous blood specimen / Unknown Result [facility] Historical Provider LAB BLOOD ORDERABLES Sujey l Result * Colonoscopy (12/27/2019) [facility] Colonoscopy Abstracted, no interpretation Anatomical Region Laterality Modality Other Historical Rigoberto MANZANO [facility]INTENANCE Final Result * Hepatitis C Screening (09/16/2009) [facility] Hepatitis C Screening Abstracted Historical Provider HEALTH MAINTENANCE Final Result from Last 3 Months or Most Recently Relevant to Health Maintenance Insurance [place] MEDIC[place] ADVANTAGE Care Teams Beam Carrier Hauler Pusher Relationship Specialty Start Date End Date Rimma John MD [address] [place] [phone] PCP - General Internal Medicine 01/13/24
== END 2025-02-20 15:46 | disposition home or self-care (01) ==
LOC: HO.ED 14:54
PROVIDERS: Emergency Provider Emergency Medicine
DX: T81.33XD Disruption of traumatic injury wound repair, subsequent encounter (principal); Z96.651 Presence of right artificial knee joint
CPT/HCPCS: 99281; 99282

== ENCOUNTER → 2025-03-11 09:44 | Outpatient (BNV) | payer MEDICARE, SELFPAY | PROVIDERS: PCP Physician Assistant; Visit Provider Radiology Diagnostic Ultrasound | DX: M79.89 Other specified soft tissue disorders (principal) | CPT/HCPCS: 73562 ==